=== PATIENT | male | born 1985 | race Caucasian/White ===

== ENCOUNTER 2020-01-09 09:37 | Outpatient (REF) | payer OTHER, SELFPAY ==
--- NOTE | 2020-01-09 | US_ITS ---
EXAMINATION: ABDOMINAL ULTRASOUND CLINICAL INFORMATION: Fatty liver COMPARISON: Previous CT of the abdomen and pelvis January 2018 and abdominal ultrasound July 2015 TECHNIQUE: Grayscale and color imaging of the abdomen FINDINGS: Liver echotexture is increased probably representing fatty infiltration. There is a hypoechoic area adjacent to the gallbladder, a characteristic location of focal fatty sparing. No other focal liver lesion is seen. There is no biliary duct dilatation. The gallbladder has been removed. The common bile duct is normal in caliber measuring 0.7 cm. The pancreas is unremarkable. The aorta and IVC are unremarkable. Kidneys are normal in contour and symmetric in size with the right kidney measuring 11.5 and the left 12.2 cm in length. No renal stone, mass or hydronephrosis is seen. The spleen is unremarkable. There is no ascites. IMPRESSION: Echogenic liver probably representing fatty infiltration. Otherwise unremarkable exam.
== END 2020-01-09 09:38 | disposition home or self-care (01) ==
LOC: HO.US 09:37
PROVIDERS: PCP Family Medicine; Visit Provider Family Medicine
DX: K76.0 Fatty (change of) liver, not elsewhere classified (principal)
CPT/HCPCS: 76700

== ENCOUNTER → 2020-03-19 14:54 | Outpatient (BNVA) | payer OTHER, SELFPAY | PROVIDERS: PCP Family Medicine; Referring Provider Family Medicine; Visit Provider Nurse Practitioner Gerontology | DX: E11.65 Type 2 diabetes mellitus with hyperglycemia (principal); I10 Essential (primary) hypertension; E78.5 Hyperlipidemia, unspecified; E78.1 Pure hyperglyceridemia; Z79.4 Long term (current) use of insulin | CPT/HCPCS: 82947; 99212 ==

== ENCOUNTER → 2020-05-30 10:51 | Outpatient (BNVA) | payer OTHER, SELFPAY | PROVIDERS: PCP Family Medicine; Visit Provider Nurse Practitioner Gerontology | DX: Z13.89 Encounter for screening for other disorder (principal) | CPT/HCPCS: Q3014 ==

== ENCOUNTER → 2021-09-17 13:10 | Outpatient (BNVA) | payer OTHER, SELFPAY | PROVIDERS: PCP Family Medicine; Visit Provider Surgery | DX: K43.2 Incisional hernia without obstruction or gangrene (principal) | CPT/HCPCS: 99212 ==

== ENCOUNTER 2021-10-01 08:05 | Outpatient (REF) | payer OTHER, SELFPAY ==
--- NOTE | ~2021-10-01 | CT_ITS ---
EXAMINATION: CT ABDOMEN AND PELVIS WITHOUT CONTRAST CLINICAL INFORMATION: Incisional hernia. COMPARISON: 01/07/2018. TECHNIQUE: Multidetector volumetric imaging was performed from the superior aspect of the liver through the pubic symphysis. Sagittal and coronal reformatted images were obtained on the technologist's workstation. This CT examination was performed using dose optimization techniques as appropriate, variously including the following: *Automated exposure control *Adjustment of mA and/or kV according to patient size (this includes techniques or standardized protocols for targeted exams where dose is matched to indication/reason for exam; i.e. extremities or head) *Use of iterative reconstruction technique DLP: 482 mGy-cm FINDINGS: LUNG BASES: The visualized lung bases are unremarkable. No pleural or pericardial effusion. LIVER, GALLBLADDER, AND BILIARY TREE: The liver is normal in size, shape, and attenuation. No biliary ductal dilatation is identified. There is a 5 mm low-density lesion seen within segment 7 of the liver likely representing a small cyst. Patient is status post cholecystectomy. PANCREAS: Unremarkable. SPLEEN: Unremarkable. ADRENAL GLANDS: Unremarkable. KIDNEYS AND URETERS: The kidneys are normal in size shape and attenuation. There is a small fat density again seen within the cortex lower pole of the left kidney consistent with angiomyolipoma. There is a 2 mm nonobstructing interpolar calcification within the left kidney. No hydronephrosis is identified. Previously noted left renal cysts are not identified due to lack of IV contrast. BLADDER: Unremarkable. GASTROINTESTINAL TRACT: No dilated loops of the large or small bowel are evident. No free air or free fluid is seen. There is some bowel wall prominence within the 1st and 2nd portions of the duodenum, which is likely related to their collapsed state with no adjacent fat stranding. No pericolonic fat stranding is identified. The appendix is visualized and appears unremarkable. ABDOMINAL WALL: No significant hernia is appreciated. LYMPH NODES: Normal. VASCULAR: Unremarkable. PELVIC VISCERA: Unremarkable. OSSEOUS STRUCTURES: Unremarkable. CT/CT abdomen pelvis wo con IMPRESSION: No significant abnormality. Fleischner guidelines were followed.
[2021-10-01] MEDS: Barium Sulfate Oral (Vanilla) 450 ML ORAL.SUSP 900 ML PO (11:25)
== END 2021-10-01 08:06 | disposition home or self-care (01) ==
LOC: HO.CT 08:05
PROVIDERS: PCP Family Medicine; Visit Provider Surgery
DX: K43.2 Incisional hernia without obstruction or gangrene (principal)
CPT/HCPCS: 74176

== ENCOUNTER → 2021-10-04 10:53 | Outpatient (BNVA) | payer OTHER, SELFPAY | PROVIDERS: PCP Family Medicine; Visit Provider Surgery | DX: R10.12 Left upper quadrant pain (principal); K59.00 Constipation, unspecified | CPT/HCPCS: 99212 ==

== ENCOUNTER 2021-12-23 13:32 | Emergency (ER) | payer OTHER, SELFPAY ==
--- NOTE | ~2021-12-23 | CT_ITS ---
EXAMINATION: CT WRIST WITHOUT CONTRAST, RIGHT CLINICAL INFORMATION: Pain and swelling. Abnormal x-ray COMPARISON: X-ray 12/23/2021 TECHNIQUE: Axial imaging. Sagittal and coronal reconstructions. This CT examination was performed using dose optimization techniques as appropriate, variously including the following: *Automated exposure control *Adjustment of mA and/or kV according to patient size (this includes techniques or standardized protocols for targeted exams where dose is matched to indication/reason for exam; i.e. extremities or head) *Use of iterative reconstruction technique DLP: 135 mGy-cm FINDINGS: There is motion artifact degrading images, limiting evaluation. There is a comminuted mildly displaced fracture of the base of the fifth metacarpal. There is mild medial displacement of the distal bone. There is intra-articular extension into the CMC joint. There is a displaced osseous fragment along the ulnar aspect of the base of the fifth metacarpal. There is an acute oblique mildly displaced fracture of the base of the fourth metacarpal. No definite intra-articular extension is identified. No additional acute fractures identified. There is widening of the scapholunate distance indicative of injury/laxity of the scapholunate ligament. Ulna negative variance. There are arthritic changes present. This includes mild radiocarpal, mild triscaphe joint arthritis. There is trapezium-pisiform articulation arthritis. CT/CT wrist RT wo IV con IMPRESSION: Motion artifact degrading images, limiting evaluation. 1. Comminuted mildly displaced intra-articular fracture of the base of the fifth metacarpal. 2. Mildly displaced fracture of the base of the fourth metacarpal. No definite intra-articular extension is seen. 3. Scapholunate distance widening indicative of injury/laxity of the ligament. 4. Arthritis as detailed above.
--- NOTE | ~2021-12-23 | XR_ITS ---
EXAMINATION: XR hand wrist RT CLINICAL INFORMATION: Reason for Exam pain COMPARISON: Right hand radiographs 11/24/2018 TECHNIQUE: 3 views right hand, navicular views right wrist FINDINGS: Comminuted mildly displaced fracture at the base of the fifth metacarpal. No definite intra-articular extension at the CMC joint. Additional newly displaced oblique fracture the base of the fourth metacarpal, also without the clear intra-articular extension. Overlying soft tissue swelling. No additional fracture or dislocation. Widening of the scapholunate interval compatible with injury/laxity of the scapholunate ligament. Minimal osteophyte formation at the triscaphe joint compatible with mild osteoarthritis. Minimal IP joint osteoarthritic changes most prominent at the thumb IP joint with small osteophytes. XR/XR hand wrist RT IMPRESSION: 1. Comminuted mildly displaced fracture of the base of the fifth metacarpal and minimally displaced fracture at the base of the fourth metacarpal. 2. Widened scapholunate interval compatible with injury/laxity of the scapholunate ligament.
[2021-12-23 13:35] VITALS: BP 146/91; PULSE 89; RESP 18; TEMP 36.6; O2SAT 98; BMI 23.8
--- NOTE | 2021-12-23 14:50 | ED.EXTPRO ---
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 He reports the pain is in his entire hand but worse at the base of his 4th and 5th fingers. He has limited hand grasp because of the pain. He denies any numbness or tingling. He also reports pain in his wrist on the ulnar aspect. It is worse with palpation and movement. He has not taken any medications for pain. He is right-hand dominant. He is in the process of working with his psychiatrist for anxiety medications. He reports a similar episode a couple of weeks ago when he punched an object as well but he did not sustain significant injury at that time. MD Complaint: extremity pain and extremity swelling Onset (ago): day(s) (1) Pain Consistency: constant Location: right Severity scale (1-10): 10 Quality: stabbing and aching Radiation: proximal Relieving factors: immobilization and elevation Exacerbating factors: range of motion and palpation Associated symptoms: denies other symptoms Related Data Home Medications Medication Instructions Recorded Confirmed atorvastatin 20 mg tablet 20 mg PO BEDTIME 03/19/20 10/04/21 blood sugar diagnostic #10 ea 03/19/20 10/04/21 cholecalciferol (vitamin D3) 50 50 mcg PO DAILY 03/19/20 10/04/21 mcg (2,000 unit) tablet duloxetine 30 mg capsule,delayed 30 mg PO QAM 03/19/20 10/04/21 release insulin degludec 100 unit/mL (3 18 unit subcut DAILY 03/19/20 10/04/21 mL) subcutaneous pen lancets 28 gauge #100 ea 03/19/20 10/04/21 loratadine 10 mg tablet 10 mg PO DAILY 03/19/20 10/04/21 omega-3 fatty acids 1,000 mg 1,000 mg PO BID 03/19/20 10/04/21 capsule oxcarbazepine 300 mg tablet 300 mg PO BID 03/19/20 10/04/21 alcohol swabs 0 pad topical 05/30/20 10/04/21 baclofen 10 mg tablet 10 mg PO TID 05/30/20 10/04/21 lisinopril 10 mg tablet 10 mg PO DAILY 05/30/20 10/04/21 Previous Rx's Medication Instructions Recorded dulaglutide 1.5 mg/0.5 mL 1.5 mg (0.5 mL) subcut QWEEK 84 02/26/21 subcutaneous pen injector days #6 mL (Trulicity) docusate sodium 100 mg capsule 100 mg PO DAILY constipation #30 10/04/21 (Colace) caps ibuprofen 600 mg tablet 600 mg PO Q8H PRN pain #14 tabs 12/23/21 oxycodone 5 mg tablet 5 mg PO Q8H PRN severe pain (scale 12/23/21 score 7-10) #9 tabs Allergies Allergy/AdvReac Type Severity Reaction Status Date / Time No Known Allergies Allergy Unverified 10/04/21 11:06 [No Known Allergies*] Review of Systems Review of Systems: Constitutional: No Fever, No Chills Cardiovascular: No Chest Pain, No SOB Gastrointestinal: No Nausea, No Vomiting Genitourinary: No Dysuria, No Urinary Frequency, No Hematuria Musculoskeletal: + joint pain, No Myalgias Skin: No Skin Lesions, No rash Neuro: + Weakness, No Numbness, No Dizziness, No Headache Psych: + Anxiety/Panic, No Depression Heme/Lymph: + Bruising, No Lymphadenopathy Endocrine: No Polyuria, No Polydipsia PMFSH Past Medical History Medical History Depression Diverticulitis Essential hypertension GERD (gastroesophageal reflux disease) Hyperlipidemia LDL goal <100 Hypertriglyceridemia IBS (irritable bowel syndrome) Inflammatory arthritis Schizophrenia Type 2 diabetes mellitus with hyperglycemia, with long-term current use of insulin Type 2 diabetes mellitus without complications Surgical History History of incisional hernia repair History of surgery on arm Hx of foot surgery Hx of hammer toe correction Hx of hand surgery Hx of hernia repair Hx of total cystectomy Family History Family History Paternal Grandfather Diabetes Social History Social History Household Members: Significant Other and Children Advance Directives: No Advance Directives Information Provided: No Physical Exam Vital Signs: Vital Signs: Last Vital Signs Temp 97.9 F 12/23/21 13:35 Pulse 89 12/23/21 13:35 Resp 18 12/23/21 13:35 BP 146/91 H 12/23/21 13:35 Pulse Ox 98 12/23/21 13:35 O2 Del Method 12/23/21 13:35 BMI result Body Mass Index 23.8 Appearance: Alert. Oriented X3. No acute distress. HEENT: normal inspection CVS: Normal heart rate and rhythm. Pulses normal. Respiratory: No respiratory distress. Skin: Skin warm and dry. Normal skin color. Normal skin turgor. No rashes. Extremities: dorsal aspect of the hand with moderate generalized swelling with tenderness of the entire hand as well as the wrist over the ulnar styloid, minimal snuff box tenderness. limited ROM of the 4th and 5th digits due to pain. cap refill <3 sec. difficulty making a tight hand grasp due to pain. Neuro: Oriented X 3. Nonfocal Course Course Course Narrative: 36-year-old male presents to the ER for evaluation of right hand pain and swelling after he punched a wall last night. Initial x-rays are showing fractures are showing comminuted, mildly displaced fracture at the base of the 5th metacarpal and minimally displaced fracture at the base of the 4th metacarpal. There is also a widened scapholunate interval compatible with injury/ laxity of the scapholunate ligament. Images were sent to Dr. Lyon for review. She is recommending further evaluation with CT scan to take a better look at the carpal bones. 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 Reevaluation(s) Reevaluation #1: CT scan read demonstrating x-ray findings including a comminuted mildly displaced intra-articular fracture of the base of the 5th metacarpal, mildly displaced fracture of the base of the 4th metacarpal, no definite intra-articular extension is seen. Scapholunate distance widening indicative of injury/ laxity of the ligament. No other carpal bone abnormalities were mentioned. Results were discussed with Dr. Lyon [place] [facility] [place] Recommending ulnar gutter, pain control and outpatient follow-up. Procedures Orthopedic Splinting/Casting Injury #1: Side: right Upper Extremity Injury Location: wrist and hand Upper Extremity Immobilizer: ulnar gutter Discharge Plan Discharge Clinical Impression: Closed fracture of fourth metacarpal bone, Closed fracture of 5th metacarpal Patient Disposition: Home, Self-Care Instructions: Hand Fracture (ED) Additional Instructions: Your CT scan today showed 1. Comminuted mildly displaced intra-articular fracture of the base of the fifth metacarpal. 2. Mildly displaced fracture of the base of the fourth metacarpal. No definite intra-articular extension is seen. 3. Scapholunate distance widening indicative of injury/laxity of the ligament. 4. Arthritis This will most likely require surgery Wear the provided splint until you are evaluated by Orthopedics - name and number below. Call tomorrow to arrange an appointment Elevate your hand whenever possible. Take the prescribed medications as directed. Do not drive after taking oxycodone, it can make you lethargic. If you develop new or worsening symptoms call 911 or come back to the ER for further evaluation. [place] tomograf?a computarizada de hoy mostr? 1. Fractura intraarticular levemente desplazada conminuta de la base del alexus metacarpiano. 2. Fractura levemente desplazada de la base del cuarto metacarpiano. No se observa extensi?n intraarticular definida. 3. Ampliaci?n de la distancia escafosemilunar indicativa de lesi?n/laxitud del ligamento. 4. Artritis Lo m?s probable es que requiera cirug?a Use la f?evelio provista hasta que [facility] lo eval?e; nombre y n?neal a continuaci?n. Llame ma?severo para concertar iliana marques Eleve [place] mano siempre que sea posible. [place] los medicamentos recetados seg?n las indicaciones. No conduzca despu?s de lesa oxicodona, puede causarle letargo. Si desarrolla s?ntomas nuevos o que empeoran, llame al 911 o regrese a la elbert de emergencias para iliana evaluaci?n adicional. Prescriptions: New oxycodone 5 mg tablet 5 mg PO Q8H PRN (Reason: severe pain (scale score 7-10)) Qty: 9 0RF Rx Instructions: Partial Fill upon patient request. ibuprofen 600 mg tablet 600 mg PO Q8H PRN (Reason: pain) Qty: 14 0RF No Action Trulicity 1.5 mg/0.5 mL pen injector 1.5 mg subcut QWEEK 84 Days Qty: 6 1RF alcohol swabs Pads, Medicated 0 pad topical lisinopril 10 mg tablet 10 mg PO DAILY baclofen 10 mg tablet 10 mg PO TID Tresiba FlexTouch U-100 100 unit/mL (3 mL) insulin pen 18 unit subcut DAILY oxcarbazepine 300 mg tablet 300 mg PO BID omega-3 fatty acids 1,000 mg capsule 1,000 mg PO BID duloxetine 30 mg capsule,delayed release(DR/EC) 30 mg PO QAM cholecalciferol (vitamin D3) 50 mcg (2,000 unit) tablet 50 mcg PO DAILY loratadine 10 mg tablet 10 mg PO DAILY atorvastatin 20 mg tablet 20 mg PO BEDTIME (DME) lancets 28 gauge misc See Rx Instructions topical BID Qty: 100 Rx Instructions: As directed (DME) FreeStyle Lite Strips Strip See Rx Instructions Not Applicable TID Qty: 10 Rx Instructions: As directed docusate sodium [Colace] 100 mg capsule 100 mg PO DAILY Qty: 30 2RF Referrals: Nicole Lyon MD [Physician] - Print Language: Serbian
[2021-12-23] MEDS: Ibuprofen 600 MG TABLET PO (15:19)
[2021-12-23] MEDS: oxyCODONE HCl Immed Release 5 MG TABLET PO (15:20)
== END 2021-12-23 19:06 | disposition home or self-care (01) ==
PROVIDERS: Emergency Provider Emergency Medicine; PCP Family Medicine
DX: S62.314A Displaced fracture of base of fourth metacarpal bone, right hand, initial encounter for closed fracture (principal); S62.316A Displaced fracture of base of fifth metacarpal bone, right hand, initial encounter for closed fracture; W22.09XA Striking against other stationary object, initial encounter; I10 Essential (primary) hypertension; E11.9 Type 2 diabetes mellitus without complications; E78.5 Hyperlipidemia, unspecified; Z79.02 Long term (current) use of antithrombotics/antiplatelets; Z79.4 Long term (current) use of insulin; Z79.899 Other long term (current) drug therapy; Y93.9 Activity, unspecified; Y92.9 Unspecified place or not applicable; Y99.9 Unspecified external cause status
CPT/HCPCS: 29125; 73110; 73130; 73200; 99283; 99284

== ENCOUNTER → 2021-12-26 09:51 | Outpatient (BNVA) | payer OTHER, SELFPAY | PROVIDERS: PCP Family Medicine; Visit Provider Physician Assistant | DX: S62.314A Displaced fracture of base of fourth metacarpal bone, right hand, initial encounter for closed fracture (principal); S62.316A Displaced fracture of base of fifth metacarpal bone, right hand, initial encounter for closed fracture | CPT/HCPCS: 99202 ==

== ENCOUNTER 2021-12-27 11:53 | Day surgery (SDC) | payer OTHER, SELFPAY ==
[2021-12-27] VITALS (10 sets, daily range): BP systolic 115–148; BP diastolic 72–96; PULSE 81–97; RESP 12–16; TEMP 36.2–36.3; O2SAT 93–96; BMI 23.8
--- NOTE | ~2021-12-27 | FL_ITS ---
EXAMINATION: XR FLUOROSCOPY WITH IMAGES CLINICAL INFORMATION: Fractures base fourth and fifth metacarpals. COMPARISON: CT right wrist and radiographs right hand and wrist 12/23/2021. TECHNIQUE: Fluoroscopy performed by Dr. Nicole Lyon. Fluoroscopy time: 29 seconds. Cumulative Dose: 0.9140 mGy. DAP: 0.0552 Gy-cm2. Images: 5. FINDINGS: Fracture base fifth metacarpal is reduced with 2 K wires. Hardware intact. Fracture fragments are in near-anatomic alignment. No dislocation. The fourth metacarpal fracture appears in near-anatomic alignment. FL/FL guidance in OR IMPRESSION: Fluoroscopy for orthopedic fracture reduction. Near-anatomic alignment.
--- NOTE | 2021-12-27 11:43 | P.CONAN_ITS ---
FORMERLY [facility] Active Problems Active Problems: All Active Problems (Updated 12/24/21 @ 00:01 by Jonathan Shore) RAMIREZ (nonalcoholic steatohepatitis) (Acute) Migraines (Acute) Colicky LUQ abdominal pain (Acute) Constipation (Acute) Incisional hernia (Acute) Type 2 diabetes mellitus with hyperglycemia, with long-term current use of insulin (Acute) Type 2 diabetes mellitus without complications (Acute) Essential hypertension (Acute) Hyperlipidemia LDL goal <100 (Acute) Hypertriglyceridemia (Acute) Past Medical History Medical History Depression Diverticulitis Essential hypertension GERD (gastroesophageal reflux disease) Hyperlipidemia LDL goal <100 Hypertriglyceridemia IBS (irritable bowel syndrome) Inflammatory arthritis Schizophrenia Type 2 diabetes mellitus with hyperglycemia, with long-term current use of insulin Type 2 diabetes mellitus without complications Family History Family History Paternal Grandfather Diabetes Surgical History Surgical History History of incisional hernia repair History of surgery on arm Hx of foot surgery Hx of hammer toe correction Hx of hand surgery Hx of hernia repair Hx of total cystectomy History of Problems with Anesthesia: No Social History Social History Household Members: Significant Other and Children Advance Directives: No Advance Directives Information Provided: Yes Current occupational status: disabled 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 Meds Allergies Allergy/AdvReac Type Severity Reaction Status Date / Time No Known Allergies Allergy Unverified 12/26/21 09:58 [No Known Allergies*] Home Medications Medication Instructions Recorded Confirmed Last Taken Type atorvastatin 20 mg tablet 20 mg PO BEDTIME 03/19/20 12/26/21 Unknown History blood sugar diagnostic #10 ea 03/19/20 12/26/21 Unknown History cholecalciferol (vitamin D3) 50 50 mcg PO DAILY 03/19/20 12/26/21 Unknown History mcg (2,000 unit) tablet duloxetine 30 mg capsule,delayed 30 mg PO QAM 03/19/20 12/26/21 Unknown History release insulin degludec 100 unit/mL (3 18 unit subcut DAILY 03/19/20 12/26/21 Unknown History mL) subcutaneous pen lancets 28 gauge #100 ea 03/19/20 12/26/21 Unknown History loratadine 10 mg tablet 10 mg PO DAILY 03/19/20 12/26/21 Unknown History omega-3 fatty acids 1,000 mg 1,000 mg PO BID 03/19/20 12/26/21 Unknown History capsule oxcarbazepine 300 mg tablet 300 mg PO BID 03/19/20 12/26/21 Unknown History alcohol swabs 0 pad topical 05/30/20 12/26/21 Unknown History baclofen 10 mg tablet 10 mg PO TID 05/30/20 12/26/21 Unknown History lisinopril 10 mg tablet 10 mg PO DAILY 05/30/20 12/26/21 Unknown History fluticasone propionate 50 intranasal 12/26/21 12/26/21 Unknown History mcg/actuation nasal spray,suspension Exam Exam Date and Time: December 27, 2021 1143 Airway Mallampati Class: III TM Dist: >3cm Neck ROM: Full Loose/Missing/Broken Teeth: No Heart: RRR Lungs: CTA Assessment and Plan Assessment Anesthesia Assessment: Anesthesia Plan Discussed and Chart Reviewed Final Anesthetic Review History of Problems with Anesthesia: No NPO: Yes ASA Class: II Final Preanesthetic Review: Meds/Allgs Chart Reviewed, Consent Obtained/Reviewed and Anes Risks/Benef Reviewed Patient Risk: Low Procedure Risk: Low Anesthetic Plan Anesthetic Plan: GA Disposition: Standard PACU
[2021-12-27] MEDS: Lactated Ringers 1,000 ML 50 ML IVCONT (13:27)
[2021-12-27 13:39] LABS: Glucose, Whole Blood 263 mg/dL (60-115)
--- NOTE | 2021-12-27 13:58 | MHC.SHP ---
Pre-Procedural Eval Section A Date of Service: 12/27/21 The patient is an INPATIENT: No Changes since office visit: No Cold of Flu in the past 2 weeks, No New Medical Problems, No Changes in Medication and No Patient answered all questions The History & Physical has been completed within 30 days and I have reviewed it.: Yes Section B Chief Complaint: Unspecified fracture of other metacarpal bone, ini Allergies: Allergies Allergy/AdvReac Type Severity Reaction Status Date / Time No Known Allergies Allergy Unverified 12/26/21 09:58 [No Known Allergies*] Plan I have reviewed the history and physical and performed a pertinent physical examination on my patient. No changes have occurred unless specified.
--- NOTE | 2021-12-27 13:59 | W.PM.OPN ---
Operative Note Operative Note Date of Service: 12/27/21 Narrative: Operative Note Narrative: Preop diagnosis: 1. right 4th Metacarpal base fracture 2. Right 5th metacarpal base fracture Postop diagnosis: Same Procedure: 1. Right 4th metacarpal base fracture closed reduction percutaneous pinning 2. right 5th metacarpal base fracture closed reduction percutaneous pinning 3. Ulnar nerve block Surgeon: Nicole Lyon MD Anesthesia: General Anesthesia Findings: Metacarpal fracture Implants: 0.062 K-wires times 2 Tourniquet time: None EBL: Minimal Specimen: None Drains: None Complications: None Disposition: Brought to the recovery room in stable condition Plan: Follow-up in 10-14 days for a wound check, postop radiographs and for placement in a short-arm cast Anticipate K-wire removal in 4-5 weeks based on interval bony healing Educate the patient that full fracture healing anticipated in approximately 8-12 weeks. Indications: The patient is [age] years old with right 4th and 5th metacarpal base fractures . The risks and benefits of operative treatment, including but not limited to risk of damage to blood vessels, nerves, tendons, infection, recurrence, delayed or nonunion of fracture, persistent pain or numbness, incomplete resolution of preoperative symptoms, or need for further surgery were discussed with the patient and they wished to proceed with surgery. Procedure: Once consent was obtained patient was brought back to the operating suite and placed in the operating table in a supine position. Perioperative antibiotics and general anesthesia was administered by the anesthesia team. A tourniquet was applied to the proximal aspect of the right upper extremity and the limb was prepped and draped in a standard surgical fashion. Tourniquet was not inflated during the case. The FluoroScan was used during the case to assist with our fracture reduction and placement of all implants. A closed reduction was performed on the patient's right 4th and 5th metacarpal base fractures. I 1st placed a 0.062 K-wire transversely through the shaft of the 5th metacarpal distal to our fracture, passing through the shaft of the 4th metacarpal just distal to the fracture and into the 3rd metacarpal, thereby holding Our 2 fractures out to length. I then passed a 2nd 0.062 K-wire obliquely through the 5th metacarpal shaft angled retrograde and obliquely across our fracture, across the 5th CMC joint and into the body of the hamate and the capitate. Fracture alignment was assessed for both angular and rotational malalignment. Once satisfied with our fracture reductions and implant placement, the K-wires were bent and cut short and pin caps applied. Final fluoroscopic images were then obtained. The wounds were copiously irrigated with normal saline. An ulnar nerve block was then performed by infiltrating about the ulnar nerve at the wrist with some 0.5% plain ropivacaine for postop pain control. A Sterile dressing and short volar splint was applied. The patient appears to have tolerated the procedure well and with no complications. All digits were well vascularized at the conclusion of the case.
[2021-12-27] MEDS: Acetaminophen 325 MG TABLET 975 MG PO (15:20)
[2021-12-27] MEDS: fentaNYL citrate/PF 100 MCG/2 ML VIAL 50 MCG IVPUSH (15:25)
[2021-12-27] MEDS: oxyCODONE HCl Immed Release 5 MG TABLET 10 MG PO (15:25)
[2021-12-27 15:36] LABS: Glucose, Whole Blood 233 mg/dL (60-115)
== END 2021-12-27 16:47 ==
LOC: HO.SSS 11:57
PROVIDERS: PCP Family Medicine; Visit Provider Orthopaedic Surgery
PROC: (CPT 26615; principal; 2021-12-27 14:10)
DX: S62.316A Displaced fracture of base of fifth metacarpal bone, right hand, initial encounter for closed fracture (principal); S62.314A Displaced fracture of base of fourth metacarpal bone, right hand, initial encounter for closed fracture; W22.09XA Striking against other stationary object, initial encounter; Y93.89 Activity, other specified; Y92.9 Unspecified place or not applicable; Y99.8 Other external cause status; F41.0 Panic disorder [episodic paroxysmal anxiety]; E11.9 Type 2 diabetes mellitus without complications; Z79.4 Long term (current) use of insulin; Z79.899 Other long term (current) drug therapy
CPT/HCPCS: 26608 ×2; 82947; J0690; J1170; J2250; J2405; J2795; J3010

== ENCOUNTER 2022-01-06 16:21 | Outpatient (REF) | payer OTHER, SELFPAY ==
--- NOTE | ~2022-01-06 | XR_ITS ---
EXAMINATION: XR HAND, RIGHT CLINICAL INFORMATION: Fracture COMPARISON: Previous x-ray most recent 01/03/2022 TECHNIQUE: PA, lateral, and oblique views of the right hand. FINDINGS: There are 2 pins or K wires across the fifth [facility] joint and proximal shaft of the second through fourth metacarpal bones. Orthopedic hardware appears unchanged. There is a comminuted minimally displaced fracture of the base of the fifth metacarpal bone. This appears unchanged. There is an oblique nondisplaced fracture of the proximal shaft of the fourth metacarpal bone. These appear unchanged. There is widening of the scapholunate joint and volar tilt of the lunate on the lateral view. Joint spaces are otherwise normal. There is soft tissue swelling adjacent to the base of the fourth and fifth metacarpal bones. XR/XR hand RT min 3V IMPRESSION: ORIF of fractures of the base of the fourth and fifth metacarpal bones.
== END 2022-01-06 16:22 | disposition home or self-care (01) ==
LOC: HO.HOSX 16:21
PROVIDERS: Visit Provider Orthopaedic Surgery
DX: S62.304A Unspecified fracture of fourth metacarpal bone, right hand, initial encounter for closed fracture (principal); X58.XXXA Exposure to other specified factors, initial encounter; Y93.9 Activity, unspecified; Y92.9 Unspecified place or not applicable; Y99.9 Unspecified external cause status
CPT/HCPCS: 73130; J1100

== ENCOUNTER 2022-01-21 17:03 | Outpatient (REF) | payer OTHER, SELFPAY ==
--- NOTE | ~2022-01-21 | XR_ITS ---
EXAMINATION: XR HAND, RIGHT CLINICAL INFORMATION: Pain. COMPARISON: Radiograph dated from 01/07/2022. TECHNIQUE: PA, lateral, and oblique views of the right hand. FINDINGS: Examination is not significantly changed when compared to 01/07/2022. Redemonstration of 2 pins or K wires across the fifth [facility] joint and proximal shaft of the second through fourth metacarpal bones. No evidence of hardware failure. A comminuted minimally displaced fracture of the base of the fifth metacarpal bone and an obliquely oriented minimally displaced fracture of the proximal shaft of the fourth metacarpal are not significantly changed. Stable widening of the scapholunate joint and volar tilt of the lunate. Similar degree of soft tissue swelling. XR/XR hand RT min 3V IMPRESSION: Stable examination when compared to 01/07/2022. No evidence of hardware failure. Fractures of the fourth and fifth metacarpal bones are not significantly changed.
== END 2022-01-21 17:04 | disposition home or self-care (01) ==
LOC: HO.HOSX 17:03
PROVIDERS: Visit Provider Orthopaedic Surgery
DX: M79.641 Pain in right hand (principal)
CPT/HCPCS: 73130

== ENCOUNTER 2022-01-27 20:50 | Outpatient (REF) | payer OTHER, SELFPAY ==
--- NOTE | ~2022-01-27 | XR_ITS ---
EXAMINATION: XR HAND, RIGHT CLINICAL INFORMATION: Right hand pain COMPARISON: January 07 and 01/22/2022 TECHNIQUE: PA, lateral, and oblique views of the right hand. FINDINGS: Routine R compressing 50-second metacarpal bone has been removed. There is laterally positioned pin is stable. There is interval healing of undisplaced fracture of fourth and fifth metacarpal bones. Soft tissues are normal. XR/XR hand RT min 3V IMPRESSION: Interval healing of fractures of fourth and fifth metacarpal bone with single hardware in place
== END 2022-01-27 20:51 | disposition home or self-care (01) ==
LOC: HO.HOSX 20:50
PROVIDERS: Visit Provider Orthopaedic Surgery
DX: M79.641 Pain in right hand (principal)
CPT/HCPCS: 73130

== ENCOUNTER 2022-03-15 23:56 | Emergency (ER) | payer OTHER, SELFPAY ==
--- NOTE | ~2022-03-15 | XR_ITS ---
EXAMINATION: XR HAND, RIGHT CLINICAL INFORMATION: Fracture of 4/fifth metacarpal. Swelling. COMPARISON: Right hand radiographs 01/28/2022. Right hand radiographs 01/07/2022. TECHNIQUE: PA, lateral, and oblique views of the right hand. FINDINGS: A comminuted fracture of the base of the fifth metatarsal is identified with mild radial angulation. Adjacent soft tissue prominence is noted. An oblique fracture of the proximal metadiaphysis of the fourth metatarsal is noted. The fracture lines are indistinct. No soft tissue emphysematous changes noted. The fractures are grossly unchanged in alignment compared with 01/28/2022. XR/XR hand RT min 3V IMPRESSION: *Subacute fractures of the fourth and fifth metacarpals as described above with partial interval healing. Prominent adjacent soft tissue inflammatory changes.
[2022-03-16 00:05] VITALS: BP 155/91; PULSE 102; RESP 16; TEMP 37.1; BMI 25.0
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
[2022-03-16] MEDS: Ibuprofen 600 MG TABLET PO (00:42)
--- NOTE | 2022-03-16 01:56 | MHC.EDTECH ---
Volar splint applied to patients right hand. Pt tolerated well. Dr Bill kinsey.
[2022-03-16] MEDS: oxyCODONE HCl Immed Release 5 MG TABLET PO (02:41)
== END 2022-03-16 02:46 | disposition home or self-care (01) ==
PROVIDERS: Emergency Provider Emergency Medicine; PCP Family Medicine
DX: S62.316A Displaced fracture of base of fifth metacarpal bone, right hand, initial encounter for closed fracture (principal); M79.641 Pain in right hand; X58.XXXA Exposure to other specified factors, initial encounter; Y93.9 Activity, unspecified; Y92.009 Unspecified place in unspecified non-institutional (private) residence as the place of occurrence of the external cause; Y99.9 Unspecified external cause status; Z79.899 Other long term (current) drug therapy
CPT/HCPCS: 29130; 73130; 99283; 99284

== ENCOUNTER 2022-03-20 10:17 | Outpatient (REF) | payer OTHER, SELFPAY ==
--- NOTE | ~2022-03-20 | XR_ITS ---
EXAMINATION: XR HAND, RIGHT CLINICAL INFORMATION: Fracture fourth and fifth metacarpals. Follow-up. COMPARISON: Radiographs right hand 03/16/2022, 01/22/2022 TECHNIQUE: Right hand is imaged in 3 views. FINDINGS: Comminuted fracture base and proximal shaft fifth metacarpal are stable in alignment. Base fracture is less distinct. The fourth metacarpal fracture proximal aspect is unchanged in alignment and fracture line not clearly visualized. No acute bony abnormality. XR/XR hand RT min 3V IMPRESSION: Continued healing fractures fourth and fifth metacarpals. No change in alignment.
== END 2022-03-20 10:18 | disposition home or self-care (01) ==
LOC: HO.HOSX 10:17
PROVIDERS: Visit Provider Physician Assistant
DX: S62.314A Displaced fracture of base of fourth metacarpal bone, right hand, initial encounter for closed fracture (principal); S62.316A Displaced fracture of base of fifth metacarpal bone, right hand, initial encounter for closed fracture; R20.0 Anesthesia of skin
CPT/HCPCS: 29085; 73130; 99212

== ENCOUNTER 2022-04-18 14:50 | Outpatient (REF) | payer OTHER, SELFPAY ==
--- NOTE | ~2022-04-18 | XR_ITS ---
EXAMINATION: XR HAND, RIGHT CLINICAL INFORMATION: Pain. COMPARISON: Prior radiographs, most recently 03/24/2022. TECHNIQUE: PA, lateral, and oblique views of the right hand. FINDINGS: There is stable alignment of comminuted fractures of the base and proximal shaft of the right fifth metacarpal bone. There is mild callus formation. A faint oblique fracture is redemonstrated of the proximal shaft of the fourth metacarpal bone. No dislocation is seen. There is mild osteoarthritic change of the interphalangeal joint of the thumb, and of the first, second, third and fifth metacarpophalangeal joints. There is some narrowing of the radiocarpal interval. No focal soft tissue swelling, gas or foreign body is seen. XR/XR hand RT min 3V IMPRESSION: There is stable alignment of proximal right fourth and fifth metacarpal fractures. There is good callus formation at the site of the proximal fifth metacarpal fracture.
== END 2022-04-18 14:51 | disposition home or self-care (01) ==
LOC: HO.HOSX 14:50
PROVIDERS: Visit Provider Physician Assistant
DX: S62.314D Displaced fracture of base of fourth metacarpal bone, right hand, subsequent encounter for fracture with routine healing (principal); S62.316D Displaced fracture of base of fifth metacarpal bone, right hand, subsequent encounter for fracture with routine healing; R20.0 Anesthesia of skin; X58.XXXD Exposure to other specified factors, subsequent encounter
CPT/HCPCS: 73130; 99212

== ENCOUNTER 2022-04-29 12:04 | Outpatient (REF) | payer OTHER, SELFPAY ==
--- NOTE | ~2022-04-29 | XR_ITS ---
EXAMINATION: XR HAND, RIGHT CLINICAL INFORMATION: Pain. COMPARISON: Radiographs dated 04/22/2022. TECHNIQUE: PA, lateral, and oblique views of the right hand. FINDINGS: There is continued stable alignment of comminuted fractures of the base of the proximal shaft of the right fifth metacarpal bone. There is stable, mild callus formation. A previously noted oblique fracture of the base of the fourth metacarpal bone is less well appreciated than previously noted. No dislocation is seen. There is persistent mild osteoarthritic change of the interphalangeal joint of the thumb and of the first, second, third and fifth metacarpophalangeal joints. Again, there is narrowing of the radiocarpal interval. There is an ulnar minus configuration. No focal soft tissue swelling, gas or foreign body seen. XR/XR hand RT min 3V IMPRESSION: There is stable alignment of a comminuted fracture of the proximal right fifth metacarpal. There is again, good, stable callus formation. The previously noted fourth metacarpal fracture line is now poorly appreciated.
== END 2022-04-29 12:05 | disposition home or self-care (01) ==
LOC: HO.HOSX 12:04
PROVIDERS: Visit Provider Physician Assistant
DX: S62.314A Displaced fracture of base of fourth metacarpal bone, right hand, initial encounter for closed fracture (principal); S62.316A Displaced fracture of base of fifth metacarpal bone, right hand, initial encounter for closed fracture
CPT/HCPCS: 73130; 99212

== ENCOUNTER 2022-05-08 13:07 | Outpatient (RCR) | payer OTHER, SELFPAY ==
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
== END 2022-06-18 15:36 | disposition home or self-care (01) ==
LOC: HO.OT 13:07
PROVIDERS: PCP Family Medicine; Visit Provider Orthopaedic Surgery
DX: S62.316D Displaced fracture of base of fifth metacarpal bone, right hand, subsequent encounter for fracture with routine healing (principal); S62.314D Displaced fracture of base of fourth metacarpal bone, right hand, subsequent encounter for fracture with routine healing
CPT/HCPCS: 97110; 97166

== ENCOUNTER 2022-05-20 08:04 | Outpatient (REF) | payer OTHER, SELFPAY ==
--- NOTE | ~2022-05-20 | XR_ITS ---
EXAMINATION: XR HAND, RIGHT CLINICAL INFORMATION: Pain. COMPARISON: Prior radiographs, most recently 04/29/2022. TECHNIQUE: PA, lateral, and oblique views of the right hand. FINDINGS: Bony mineralization is normal. A healing fracture in stable alignment is noted of the fifth proximal metacarpal shaft. There is adjacent periosteal callus formation. There is minimal osteoarthritic change of the interphalangeal joint of the thumb and of the fifth metacarpophalangeal joint. No dislocation is seen. No focal soft tissue swelling, gas or foreign body is seen. XR/XR hand RT min 3V IMPRESSION: There is stable alignment of a healing fracture of the right fifth proximal metacarpal shaft. There is adjacent periosteal callus formation.
== END 2022-05-20 08:05 | disposition home or self-care (01) ==
LOC: HO.HOSX 08:04
PROVIDERS: Visit Provider Physician Assistant
DX: S62.314A Displaced fracture of base of fourth metacarpal bone, right hand, initial encounter for closed fracture (principal); S62.316A Displaced fracture of base of fifth metacarpal bone, right hand, initial encounter for closed fracture
CPT/HCPCS: 73130; 99212

== ENCOUNTER 2022-05-27 09:40 | Outpatient (REF) | payer OTHER, SELFPAY | END 2022-05-27 09:41 | disposition home or self-care (01) | LOC: HO.HOSX 09:40 | PROVIDERS: Visit Provider Orthopaedic Surgery | DX: Z13.89 Encounter for screening for other disorder (principal) ==

== ENCOUNTER 2022-06-17 09:28 | Outpatient (REF) | payer OTHER, SELFPAY | END 2022-06-17 09:29 | disposition home or self-care (01) | LOC: HO.HOSX 09:28 | PROVIDERS: Visit Provider Physician Assistant | DX: Z13.89 Encounter for screening for other disorder (principal) ==

== ENCOUNTER 2022-09-15 12:40 | Emergency (ER) | payer OTHER, SELFPAY ==
--- NOTE | ~2022-09-15 | CT_ITS ---
EXAMINATION: CT ABDOMEN AND PELVIS WITH CONTRAST CLINICAL INFORMATION: Right flank pain. Nausea and vomiting. COMPARISON: 10/01/2021 TECHNIQUE: Multidetector volumetric images were obtained from the superior aspect of the liver through the pubic symphysis following administration 85 mL of Omnipaque 350 intravenous contrast. Sagittal and coronal reformatted images were obtained on the technologist's workstation. Oral contrast: No This CT examination was performed using dose optimization techniques as appropriate, variously including the following: *Automated exposure control *Adjustment of mA and/or kV according to patient size (this includes techniques or standardized protocols for targeted exams where dose is matched to indication/reason for exam; i.e. extremities or head) *Use of iterative reconstruction technique DLP: 466 mGy-cm FINDINGS: LUNG BASES: Gynecomastia. LIVER, GALLBLADDER, AND BILIARY TREE: The liver is mildly decreased in attenuation. No suspicious hepatic lesion or biliary ductal dilatation is present. The gallbladder is surgically absent. PANCREAS: Unremarkable. SPLEEN: Unremarkable. ADRENAL GLANDS: Unremarkable. KIDNEYS AND URETERS: The kidneys are symmetric in size and enhancement. No hydronephrosis or perinephric stranding. BLADDER: Unremarkable. GASTROINTESTINAL TRACT: Irregular wall thickening of the ascending colon no pericolonic inflammatory changes. No small bowel obstruction. Appendix is within normal. ABDOMINAL WALL: No significant hernia is appreciated. LYMPH NODES: No bulky abdominal or pelvic lymphadenopathy VASCULAR: Normal caliber abdominal aorta. PELVIC VISCERA: The prostate gland and seminal vesicles are unremarkable. OSSEOUS STRUCTURES: No destructive bone lesions. CT/CT abdomen pelvis w IV con IMPRESSION: Irregular wall thickening of the ascending colon without surrounding inflammatory changes. Correlation with direct visualization is advised.
[2022-09-15 12:51] VITALS: BP 113/70; PULSE 110; O2SAT 98
[2022-09-15 13:15] VITALS: BP 115/65; PULSE 101; RESP 19; TEMP 36.6; O2SAT 99; BMI 24.4
--- NOTE | 2022-09-15 13:15 | ED.ABDPAIN ---
HPI - Abdominal Pain General Chief Complaint: Abdominal Pain Stated Complaint: ABD PAIN,NAUSEA THIS AM PER EMS Time Seen by Provider: 09/15/22 14:54 Source: patient Mode of arrival: EMS Limitations: no limitations History of Present Illness HPI narrative: Patient comes to the emergency room complaining of severe abdominal pain. Today, patient started having epigastric pain, went to see his primary care physician, the pain was too severe and was sent via ambulance to the emergency room. At this time, patient states that the pain is subsiding but still present, mostly complaining of middle and lower back pain. Patient denies hematuria or dysuria, no history of kidney stones. Patient states that in 2008 he had a perforation secondary to diverticulitis. Patient states that pain feels very similar. Related Data Home Medications Medication Instructions Recorded Confirmed atorvastatin 20 mg tablet 20 mg PO BEDTIME 03/19/20 12/26/21 blood sugar diagnostic #10 ea 03/19/20 12/26/21 cholecalciferol (vitamin D3) 50 50 mcg PO DAILY 03/19/20 12/26/21 mcg (2,000 unit) tablet duloxetine 30 mg capsule,delayed 30 mg PO QAM 03/19/20 12/26/21 release insulin degludec 100 unit/mL (3 18 unit subcut DAILY 03/19/20 12/26/21 mL) subcutaneous pen lancets 28 gauge #100 ea 03/19/20 12/26/21 loratadine 10 mg tablet 10 mg PO DAILY 03/19/20 12/26/21 omega-3 fatty acids 1,000 mg 1,000 mg PO BID 03/19/20 12/26/21 capsule oxcarbazepine 300 mg tablet 300 mg PO BID 03/19/20 12/26/21 alcohol swabs 0 pad topical 05/30/20 12/26/21 baclofen 10 mg tablet 10 mg PO TID 05/30/20 12/26/21 lisinopril 10 mg tablet 10 mg PO DAILY 05/30/20 12/26/21 fluticasone propionate 50 intranasal 12/26/21 12/26/21 mcg/actuation nasal spray,suspension Previous Rx's Medication Instructions Recorded dulaglutide 1.5 mg/0.5 mL 1.5 mg (0.5 mL) subcut QWEEK 84 02/26/21 subcutaneous pen injector days #6 mL (Trulicity) docusate sodium 100 mg capsule 100 mg PO DAILY constipation #30 10/04/21 (Colace) caps ibuprofen 600 mg tablet 600 mg PO Q8H PRN pain #14 tabs 12/23/21 ibuprofen 600 mg tablet 600 mg PO TID PRN pain #20 tabs 03/16/22 oxycodone 5 mg tablet 5 mg PO BID PRN pain #7 tabs 03/16/22 levofloxacin 500 mg tablet 500 mg PO DAILY #9 tabs 09/15/22 metronidazole 500 mg tablet 500 mg PO BID #19 tabs 09/15/22 tramadol 50 mg tablet 50 mg PO BID PRN pain #7 tabs 09/15/22 Allergies Allergy/AdvReac Type Severity Reaction Status Date / Time No Known Allergies Allergy Verified 09/15/22 13:15 [No Known Allergies*] Review of Systems Review of Systems Constitutional : No Weight loss, No Fever, No Chills, No Night Sweats, No Fatigue, No Malaise ENT/Mouth : No Hearing loss, No Ear Pain, No Nasal Congestion, No Sinus Pain, No Hoarseness, No sore throat, No Rhinorrhea, No Swallowing Difficulty Eyes: No Eye Pain, No Swelling, No Redness, No Foreign Body, No Discharge, No Vision Changes Cardiovascular : No Chest Pain, No SOB, No Dyspnea on Exertion, No Orthopnea, No Edema, No Palpitations Respiratory : No Cough, No Sputum, No Wheezing, No Smoke Exposure, No Dyspnea Gastrointestinal : 1 episode of vomiting 1 episode of Diarrhea, No Constipation, complaining of epigastric pain radiating towards the back Genitourinary : no irregular bleeding, No Dysuria, No Urinary Frequency, No Hematuria, No Urinary Incontinence, No Urgency, No Flank Pain, No Urinary Flow Changes, No Hesitancy Musculoskeletal : No joint pain, No Myalgias, No Joint Swelling Skin : No Skin Lesions, No rash Neuro : No Weakness, No Numbness, No Paresthesias, No Loss of Consciousness, No Dizziness, No Headache Psych : No Anxiety/Panic, No Depression, No SI/HI/AH/VH, No Social Issues, Heme/Lymph: No Bruising, No Bleeding,No Lymphadenopathy Endocrine : No Polyuria, No Polydipsia, No Temperature Intolerance PMFSH Past Medical History Medical History Depression Diverticulitis Essential hypertension GERD (gastroesophageal reflux disease) Hyperlipidemia LDL goal <100 Hypertriglyceridemia IBS (irritable bowel syndrome) Inflammatory arthritis Schizophrenia Type 2 diabetes mellitus with hyperglycemia, with long-term current use of insulin Type 2 diabetes mellitus without complications Surgical History History of incisional hernia repair History of surgery on arm Hx of foot surgery Hx of hammer toe correction Hx of hand surgery Hx of hernia repair Hx of total cystectomy Family History Family History Paternal Grandfather Diabetes Social History Social History Household Members: Significant Other and Children Alcohol intake: current Alcohol intake frequency: a few times a month Patient Tobacco Use Status: Never used Tobacco Smoked in Last 30 Days: No Use of substances other than those prescribed or required for medical reasons: No Advance Directives: No Advance Directives Information Provided: No Current occupational status: disabled 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 Oriented X3. No acute distress. Eyes: Pupils equal, round and reactive to light. ENT: Pharynx normal. Neck: Normal inspection. Neck supple. No lymph nodes noted. No crepitus CVS: Normal heart rate and rhythm. Pulses normal. Normal S1 and S2 Respiratory: No respiratory distress. Breath sounds normal. No Wheezing. No rales Abdomen: Soft mild epigastric pain on palpation, no rebound, no guarding Skin: Skin warm and dry. Normal skin color. Normal skin turgor. Extremities: No lower extremity edema. No Lacerations. No Rash Neuro: Oriented X 3. No motor deficit. No sensory deficit. Moving all extremities. No slurred speech. CN 2 through 12 grossly intact Psych: calm, cooperative, normal affect Course Course Course Narrative: RME: 36-year-old male with past medical history of uncontrolled diabetes, HTN, HLD, constipation, RAMIREZ, perforated intestine, presenting to the ED complaining of epigastric/RUQ abdominal pain radiating to R flank since yesterday AM w/assoc N/V x today. Was seen at [facility] this AM. Admits presented similarly with perforated intestine Low suspicion for severe sepsis at this time Abdomen soft with epigastric and right CVA tenderness EKG, Labs, UA, CT AP ordered Full HPI, ROS and PE to be performed by primary ED provider. -1440--leukocytosis noted of 21.3 > lactic/blood cultures and empiric IV Zosyn ordered Medical Decision Making Medical Decision Making [facility] Narrative: -patient received normal saline, Zosyn was ordered from triage, patient also getting morphine and Zofran -my interpretation of CT scan of the abdomen: No perforation, no free air -CT scan shows irregular wall thickening of the ascending colon without surrounding inflammation changes. -patient feeling well, not nauseous, not vomiting -patient given antibiotics, he will continue antibiotics at home, instructed to return to emergency room if he has worsening pain or any new symptoms. At this time, patient states that he feels fairly well Lab Data [facility] Lab Attestation statement: I reviewed the patient's lab results. 09/15/22 13:40 09/15/22 13:40 Labs: Lab Results 09/15/22 09/15/22 09/15/22 Range/Units 13:40 13:40 15:06 WBC 21.3 H (4.8-10.8) X10*3/uL RBC 5.59 (4.60-5.80) X10*6/uL Hgb 15.9 (14.0-18.0) g/dl Hct 47.3 (42.0-52.0) % MCV 84.6 (80.0-98.0) fL MCH 28.4 (27.0-33.0) pg MCHC 33.6 (31.0-36.0) g/dl RDW 13.1 (11.0-16.0) % Plt Count 206 (160-400) X10*3/uL MPV 12.0 (9.4-12.4) fL Immature Gran % (Auto) 0.9 H (0.0-0.4) % Neut % (Auto) 84.6 H (45-73) % Lymph % (Auto) 3.3 L (20-40) % [place] % (Auto) 9.7 (2-11) % Eos % (Auto) 1.2 (0-4) % Baso % (Auto) 0.3 (0-2) % Lymph # (Auto) 0.7 L (1.2-4.9) X10*3/uL [place] # (Auto) 2.1 H (0.1-1.2) X10*3/uL Eos # (Auto) 0.3 (0.0-0.4) X10*3/uL Baso # (Auto) 0.1 (0.0-0.2) X10*3/uL Abs Immat Gran (auto) 0.19 H (0.00-0.03) X10*3/uL Absolute Neuts (auto) 18.1 H (2.0-8.3) x10*3/uL Absolute Nucleated RBC 0.000 (0.0-0.012) X10*3/uL Nucleated RBC % (auto) 0.0 (0.0-0.2) /100WBC Smear Tech's Comments VERIFIED Sodium 139 (135-145) mmol/L Potassium 5.2 H (3.3-5.1) mmol/L Chloride 111 H (96-108) mmol/L Carbon Dioxide 21 L (22-29) mmol/L Anion Gap 12 (12-20) BUN 25 H (9-16) mg/dL Creatinine 0.98 (0.5-1.4) mg/dL Estim Creat Clear Calc 95.5 Estimated GFR > 60 Random Glucose 307 H (60-115) mg/dL Lactic Acid 2.3 H* (0.5-2.0) mmol/L Calcium 9.0 (8.4-10.2) mg/dL Magnesium 1.7 (1.6-2.6) mg/dL Total Bilirubin 1.0 (0.0-1.0) mg/dL Direct Bilirubin 0.2 (0.0-0.5) mg/dL AST 14 (5-37) U/L ALT 18 (0-40) U/L Alkaline Phosphatase 112 (39-117) U/L Total Protein 7.7 (6.5-8.0) g/dL Albumin 4.3 (3.5-5.0) g/dL Lipase 26 (8-78) U/L Radiology Impression Discussion of test interpretation with radiology: I have reviewed the radiologist's reading. Radiologist Impression: FINDINGS: LUNG BASES: Gynecomastia. LIVER, GALLBLADDER, AND BILIARY TREE: The liver is mildly decreased in attenuation. No suspicious hepatic lesion or biliary ductal dilatation is present. The gallbladder is surgically absent.? PANCREAS: Unremarkable.? SPLEEN: Unremarkable.? ADRENAL GLANDS: Unremarkable.? KIDNEYS AND URETERS: The kidneys are symmetric in size and enhancement. No hydronephrosis or perinephric stranding. ? BLADDER: Unremarkable.? GASTROINTESTINAL TRACT: Irregular wall thickening of the ascending colon no pericolonic inflammatory changes. No small bowel obstruction. Appendix is within normal. ABDOMINAL WALL: No significant hernia is appreciated.? LYMPH NODES: No bulky abdominal or pelvic lymphadenopathy VASCULAR: Normal caliber abdominal aorta. PELVIC VISCERA: The prostate gland and seminal vesicles are unremarkable.? OSSEOUS STRUCTURES: No destructive bone lesions. CT/CT abdomen pelvis w IV con IMPRESSION: Irregular wall thickening of the ascending colon without surrounding inflammatory changes. Correlation with direct visualization is advised. Medications Administered Discontinued Medications Generic Name Dose Route Start Last Admin Trade Name Freq PRN Reason Stop Dose Admin Sodium Chloride 1,000 mls @ 999 mls/hr 09/15/22 13:30 09/15/22 15:33 Ns IV 09/15/22 14:30 999 mls/hr .Q1H1M KEILA Administration Piperacillin Sod/Tazobactam 50 mls @ 100 mls/hr 09/15/22 14:40 09/15/22 15:32 Sod 3.375 gm/ Sodium Chloride IV 09/15/22 15:09 100 mls/hr ONCE ONE Administration Iohexol 100 ml 09/15/22 15:21 09/15/22 15:21 Iohexol 350 Mg/Ml 100 Ml Infus..Btl IV 09/15/22 15:22 85 ml ONCE ONE Administration Morphine Sulfate 4 mg 09/15/22 15:02 09/15/22 15:32 Morphine Sulfate 4 Mg/Ml Cartridge IVPUSH 09/15/22 15:03 4 mg ONCE ONE Administration Protocol Ondansetron HCl 4 mg 09/15/22 15:07 09/15/22 15:32 Ondansetron Hcl 4 Mg/2 Ml Vial IVPUSH 09/15/22 15:08 4 mg ONCE ONE Administration Discharge Plan Discharge Clinical Impression: Abdominal pain Patient Disposition: Home, Self-Care Instructions: Abdominal Pain (ED) Additional Instructions: Please follow-up with your primary care physician tomorrow. If you have any worsening or new symptoms, please return to the emergency room or call 911 Prescriptions: New levofloxacin 500 mg tablet 500 mg PO DAILY Qty: 9 0RF metronidazole 500 mg tablet 500 mg PO BID Qty: 19 0RF tramadol 50 mg tablet 50 mg PO BID PRN (Reason: pain) Qty: 7 0RF No Action Trulicity 1.5 mg/0.5 mL pen injector 1.5 mg subcut QWEEK 84 Days Qty: 6 1RF ibuprofen 600 mg tablet 600 mg PO Q8H PRN (Reason: pain) Qty: 14 0RF ibuprofen 600 mg tablet 600 mg PO TID PRN (Reason: pain) Qty: 20 0RF oxycodone 5 mg tablet 5 mg PO BID PRN (Reason: pain) Qty: 7 0RF Rx Instructions: Partial Fill upon patient request. alcohol swabs Pads, Medicated 0 pad topical lisinopril 10 mg tablet 10 mg PO DAILY baclofen 10 mg tablet 10 mg PO TID Tresiba FlexTouch U-100 100 unit/mL (3 mL) insulin pen 18 unit subcut DAILY oxcarbazepine 300 mg tablet 300 mg PO BID omega-3 fatty acids 1,000 mg capsule 1,000 mg PO BID duloxetine 30 mg capsule,delayed release(DR/EC) 30 mg PO QAM cholecalciferol (vitamin D3) 50 mcg (2,000 unit) tablet 50 mcg PO DAILY loratadine 10 mg tablet 10 mg PO DAILY atorvastatin 20 mg tablet 20 mg PO BEDTIME (DME) lancets 28 gauge misc See Rx Instructions topical BID Qty: 100 Rx Instructions: As directed (DME) FreeStyle Lite Strips Strip See Rx Instructions Not Applicable TID Qty: 10 Rx Instructions: As directed docusate sodium [Colace] 100 mg capsule 100 mg PO DAILY Qty: 30 2RF fluticasone propionate 50 mcg/actuation spray,suspension intranasal
--- NOTE | 2022-09-15 13:17 | ECG_ITS ---
Test Reason : chest pain Blood Pressure : / mmHG Vent. Rate : 100 BPM Atrial Rate : 100 BPM P-R Int : 124 ms QRS Dur : 070 ms QT Int : 340 ms P-R-T Axes : 042 013 060 degrees QTc Int : 438 ms Normal sinus rhythm Normal ECG When compared with ECG of 14-APR-2018 12:46, No significant change was found Referred By: Yue Alba Electronically Signed By:CHIQUITA COBURN MD
--- NOTE | 2022-09-15 13:41 | MHC.EDTECH ---
EKG completed and signed by . Labs drawn and sent
[2022-09-15 13:45] LABS: Basophils Absolute Auto 0.1 X10*3/uL (0.0-0.2); Basophils Percent Auto 0.3 % (0-2); Eosinophils Absolute Auto 0.3 X10*3/uL (0.0-0.4); Eosinophils Percent Auto 1.2 % (0-4); Hematocrit 47.3 % (42.0-52.0); Hemoglobin 15.9 g/dl (14.0-18.0); Imm Gran Abs Auto 0.19 X10*3/uL (0.00-0.03); Imm Gran Pct Auto 0.9 % (0.0-0.4); Lymphocytes Absolute Auto 0.7 X10*3/uL (1.2-4.9); Lymphocytes Percent Auto 3.3 % (20-40); MANUAL DIFF FLAG SCAN; Mean Corpuscular HGB Conc 33.6 g/dl (31.0-36.0); Mean Corpuscular Hemoglobin 28.4 pg (27.0-33.0); Mean Corpuscular Volume 84.6 fL (80.0-98.0); Monocytes Absolute Auto 2.1 X10*3/uL (0.1-1.2); Monocytes Percent Auto 9.7 % (2-11); Neutrophils Absolute Auto 18.1 x10*3/uL (2.0-8.3); Neutrophils Percent Auto 84.6 % (45-73); Platelet Count 206 X10*3/uL (160-400); Red Blood Count 5.59 X10*6/uL (4.60-5.80); Red Cell Distribution Width 13.1 % (11.0-16.0); SCAN SMEAR FLAG 1; White Blood Count 21.3 X10*3/uL (4.8-10.8)
[2022-09-15 14:07] LABS: SLIDE REVIEW VERIFIED
[2022-09-15 14:08] LABS: Alanine Aminotransferase 18 U/L (0-40); Albumin Level 4.3 g/dL (3.5-5.0); Alkaline Phosphatase 112 U/L (39-117); Anion Gap 12 (12-20); Aspartate Amino Transferase 14 U/L (5-37); Bilirubin Direct 0.2 mg/dL (0.0-0.5); Blood Urea Nitrogen 25 mg/dL (9-16); Carbon Dioxide 21 mmol/L (22-29); Chloride 111 mmol/L (96-108); Creatinine Clr Calc Pharmacy 95.5; Estimated Glomerular Filt Rate > 60; Glucose Random 307 mg/dL (60-115); Lipase 26 U/L (8-78); Magnesium 1.7 mg/dL (1.6-2.6); Potassium 5.2 mmol/L (3.3-5.1); Sodium 139 mmol/L (135-145); Total Protein 7.7 g/dL (6.5-8.0)
--- NOTE | 2022-09-15 15:10 | PC.NURSE ---
pt a&ox4, vss, reporting 8/10 bilateral flank/back pain with slight central abd tenderness. 20G IV placed left AC, labs drawn, first set of cultures obtained. pt to CT.
[2022-09-15] MEDS: iohexoL 350 MG/ML 100 ML INFUS..BTL IV (15:21)
[2022-09-15 15:28] VITALS: BP 121/68; PULSE 107; RESP 16; TEMP 37.8; O2SAT 97
[2022-09-15 15:32] LABS: Lactic Acid 2.3 mmol/L (0.5-2.0)
[2022-09-15] MEDS: Piperacillin Sodium/Tazobactam 3.375 GM in 0.9 % Sodium Chloride 50 ML IV (15:32)
[2022-09-15] MEDS: ondansetron HCL 4 MG/2 ML VIAL IVPUSH (15:32)
[2022-09-15] MEDS: Morphine Sulfate 4 MG/ML CARTRIDGE IVPUSH (15:32)
[2022-09-15] MEDS: 0.9 % Sodium Chloride 1,000 ML 999 ML IV (15:33)
--- NOTE | 2022-09-15 15:42 | MHC.EDTECH ---
this pct assumed care of pt at 1500 ,vitals sign taken,pt 2nd sets of blood culture drawn and sent to lab .
[2022-09-15 16:35] VITALS: BP 96/57; PULSE 99
[2022-09-15 16:47] VITALS: BP 110/65; PULSE 101
[2022-09-15 16:48] LABS: Appearance Urine Clear; Color Urine Yellow; Glucose Urine UA >=1000 mg/dL (Negative); Leukocyte Esterase Urine Negative (Negative); Nitrite Urine Negative (Negative); Specific Gravity - Urine >= 1.030 (1.005-1.025); UMIC TRIGGER UACC YES; Urine Blood Negative (Negative); Urine Ketones Negative (Negative); Urine Protein Negative (Neg-Trace)
[2022-09-15 16:53] LABS: Bacteria Urine None Seen (None Seen); RBC Urine 0-2 /HPF (0-2); Squamous Epithelial Cell Urine 0-2 /HPF (0-2); WBC Urine 0-5 /HPF (0-5)
[2022-09-15 16:54] VITALS: BP 105/56; PULSE 100; RESP 16; TEMP 37.1; O2SAT 97
--- NOTE | 2022-09-15 16:54 | MHC.EDTECH ---
PATIENT DID PO CHALLENGE ,PT TOLERATED WELL .
--- NOTE | 2022-09-15 17:00 | PC.NURSE ---
per provider, pt does not need second lactic.
[2022-09-15 17:13] LABS: Reflex Lactate? Lactic Acid Added
[2022-09-15] MEDS: metroNIDAZOLE 500 MG TABLET PO (17:21)
== END 2022-09-15 17:24 | disposition home or self-care (01) ==
PROVIDERS: Physician Assistant; Emergency Provider Emergency Medicine
DX: R10.13 Epigastric pain (principal); R10.11 Right upper quadrant pain; I10 Essential (primary) hypertension; E78.5 Hyperlipidemia, unspecified; K75.81 Nonalcoholic steatohepatitis (NASH)
CPT/HCPCS: 36415; 74177; 80048; 80076; 81001; 83605; 83690; 83735; 85025; 87040; 93005; 96365; 96375; 99285; J2270; J2405; J2543; Q9967

== ENCOUNTER 2023-01-30 17:57 | Outpatient (REF) | payer OTHER, SELFPAY ==
[2023-01-30 18:50] LABS: Influenza A PCR NEGATIVE (Negative); Influenza B PCR NEGATIVE (Negative); Resp Syncy Virus RNA Qual PCR NEGATIVE (Negative); SARS COV2 PCR INHOUSE NEGATIVE (Negative)
== END 2023-01-30 17:58 | disposition home or self-care (01) ==
LOC: HO.HHCLNP 17:57
PROVIDERS: Visit Provider Emergency Medicine
DX: J06.9 Acute upper respiratory infection, unspecified (principal); Z11.52 Encounter for screening for COVID-19
CPT/HCPCS: 0241U

== ENCOUNTER 2023-03-12 08:44 | Emergency (ER) | payer OTHER, SELFPAY ==
[2023-03-12 09:08] VITALS: BP 144/87; PULSE 95; RESP 16; TEMP 36.7; O2SAT 97; BMI 23.5
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
[2023-03-12 12:14] LABS: IDNOW Serial# 08D9AD1C; IDNOW Serial# BCCEAD1C; Influenza A Negative (Negative); Influenza B2 Negative (Negative)
[2023-03-12 12:15] LABS: COVID-19 Test Negative (Negative)
== END 2023-03-12 13:02 | disposition home or self-care (01) ==
PROVIDERS: Physician Assistant; Emergency Provider Emergency Medicine Emergency Medical Services; PCP Family Medicine
DX: T14.8XXA Other injury of unspecified body region, initial encounter (principal); W57.XXXA Bitten or stung by nonvenomous insect and other nonvenomous arthropods, initial encounter; R09.81 Nasal congestion; Z11.52 Encounter for screening for COVID-19; E11.9 Type 2 diabetes mellitus without complications; I10 Essential (primary) hypertension; E78.5 Hyperlipidemia, unspecified; Y93.9 Activity, unspecified; Y92.032 Bedroom in apartment as the place of occurrence of the external cause; Y99.9 Unspecified external cause status
CPT/HCPCS: 87502; 87635; 99282; 99283

== ENCOUNTER 2023-09-09 20:49 | Emergency (ER) | payer OTHER, SELFPAY ==
[2023-09-09 21:07] VITALS: BP 149/95; PULSE 93; RESP 20; TEMP 36.8; O2SAT 99; BMI 22.2
[2023-09-09 22:13] VITALS: BP 153/97; PULSE 84; RESP 16; TEMP 36.8; O2SAT 98
[2023-09-10 00:31] VITALS: BP 143/97; PULSE 79; RESP 16; TEMP 36.4; O2SAT 97
--- NOTE | 2023-09-10 01:00 | ED.GENADULT ---
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 Patient reports low back pain for the last 4 days. Denies any traumatic injury. Specifically denies any falls, twisting injuries or heavy lifting. His pain does not radiate. Denies any numbness, tingling. Denies any bladder or bowel incontinence pain Denies any radiation of his pain including abdominal pain Denies any history of back problems. Denies any fevers, chills His pain is worse with movement Related Data Home Medications ?Medication ?Instructions ?Recorded ?Confirmed atorvastatin 20 mg tablet 20 mg PO BEDTIME 03/19/20 12/26/21 blood sugar diagnostic #10 ea 03/19/20 12/26/21 cholecalciferol (vitamin D3) 50 50 mcg PO DAILY 03/19/20 12/26/21 mcg (2,000 unit) tablet duloxetine 30 mg capsule,delayed 30 mg PO QAM 03/19/20 12/26/21 release insulin degludec 100 unit/mL (3 18 unit subcut DAILY 03/19/20 12/26/21 mL) subcutaneous pen lancets 28 gauge #100 ea 03/19/20 12/26/21 loratadine 10 mg tablet 10 mg PO DAILY 03/19/20 12/26/21 omega-3 fatty acids 1,000 mg 1,000 mg PO BID 03/19/20 12/26/21 capsule oxcarbazepine 300 mg tablet 300 mg PO BID 03/19/20 12/26/21 alcohol swabs 0 pad topical 05/30/20 12/26/21 baclofen 10 mg tablet 10 mg PO TID 05/30/20 12/26/21 lisinopril 10 mg tablet 10 mg PO DAILY 05/30/20 12/26/21 fluticasone propionate 50 intranasal 12/26/21 12/26/21 mcg/actuation nasal spray,suspension Previous Rx's ?Medication ?Instructions ?Recorded dulaglutide 1.5 mg/0.5 mL 1.5 mg (0.5 mL) subcut QWEEK 84 02/26/21 subcutaneous pen injector days #6 mL (Trulicity) docusate sodium 100 mg capsule 100 mg PO DAILY constipation #30 10/04/21 (Colace) caps ibuprofen 600 mg tablet 600 mg PO Q8H PRN pain #14 tabs 12/23/21 ibuprofen 600 mg tablet 600 mg PO TID PRN pain #20 tabs 03/16/22 oxycodone 5 mg tablet 5 mg PO BID PRN pain #7 tabs 03/16/22 levofloxacin 500 mg tablet 500 mg PO DAILY #9 tabs 09/15/22 metronidazole 500 mg tablet 500 mg PO BID #19 tabs 09/15/22 tramadol 50 mg tablet 50 mg PO BID PRN pain #7 tabs 09/15/22 cetirizine 10 mg capsule (Zyrtec) 10 mg PO DAILY PRN allergy 03/12/23 symptoms #14 caps diphenhydramine HCl 25 mg capsule 25 mg PO TID PRN itching #14 caps 03/12/23 (Benadryl) hydrocortisone 1 % lotion 1 appl topical BID PRN itching 03/12/23 (Anti-Itch (hydrocortisone)) #120 mL cyclobenzaprine 10 mg tablet 10 mg PO TID PRN muscle spasm #12 09/10/23 tabs dexamethasone 4 mg tablet 4 mg PO BID #6 tabs 09/10/23 naproxen 500 mg tablet 500 mg PO BID PRN pain #14 tabs 09/10/23 Allergies Allergy/AdvReac Type Severity Reaction Status Date / Time No Known Allergies Allergy Verified 09/09/23 21:10 [No Known Allergies*] Review of Systems Constitutional: Constitutional: Denies body ache(s), Denies chills and Denies fever(s) Eyes: Eyes: Denies blurry vision Cardiovascular: Cardiovascular: Denies chest pain and Denies dyspnea Respiratory: Respiratory: Denies cough and Denies dyspnea Gastrointestinal: Gastrointestinal: Denies abdominal pain Musculoskeletal: Musculoskeletal: Reports back pain, Denies arthralgias, Denies joint swelling, Denies limited range of motion, Denies muscle weakness, Denies radiating pain into limb and Reports stiffness PMFSH Past Medical History Medical History Type 2 diabetes mellitus with hyperglycemia, with long-term current use of insulin IBS (irritable bowel syndrome) Hypertriglyceridemia Schizophrenia Inflammatory arthritis Diverticulitis GERD (gastroesophageal reflux disease) Depression Essential hypertension Hyperlipidemia LDL goal <100 Type 2 diabetes mellitus without complications Surgical History Hx of hammer toe correction History of incisional hernia repair Hx of total cystectomy Hx of hand surgery History of surgery on arm Hx of foot surgery Hx of hernia repair Family History Family History Paternal Grandfather Diabetes Social History Social History Household Members: Significant Other and Children Alcohol intake: current Alcohol intake frequency: a few times a month Patient Tobacco Use Status: Never used Tobacco Advance Directives: No Advance Directives Information Provided: No Do you have a plan to hurt others: No Plan Current occupational status: disabled 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 Physical Exam ED Vital Signs: Vital Signs - 24 hr 09/09/23 21:07 09/09/23 22:13 09/10/23 00:31 Temperature 98.2 F 98.2 F 97.6 F Pulse Rate 93 84 79 Respiratory Rate 20 16 16 Blood Pressure 149/95 H 153/97 H 143/97 H Pulse Oximetry 99 98 97 Oxygen Delivery Method Room Air Room Air Room Air 09/10/23 01:14 Temperature 97.6 F Pulse Rate 79 Respiratory Rate 16 Blood Pressure 143/97 H Pulse Oximetry 97 Oxygen Delivery Method Room Air BMI result Body Mass Index 22.2 Const General: healthy appearing, comfortable, no acute distress, alert and awake Nutritional Appearance: well nourished Orientation/consciousness: patient oriented x3 HENMT Head: Yes normocephalic and Yes atraumatic Eyes Eyelids: Yes eyelids normal Conjunctivae: conjunctivae normal Sclerae: sclerae normal Corneas: corneas normal Pupils: Equal, round and reactive pupils present EOM: EOMs intact bilaterally Neck Neck: Yes full ROM Resp Effort & Inspection: normal respiratory effort, able to speak in complete sentences and not labored GI Inspection: No distended Palpation (GI): Soft to palpation, not firm, nontender, no guarding and not rigid Back/Spine/Pelvis Other: Tenderness in the left lumbar paraspinous region. No vertebral tenderness. No step-offs or deformities. Negative straight leg raise on left Skin General skin exam: elasticity normal Neuro General: patient oriented x3 Cranial nerves: Yes Equal, round and reactive pupils present and Yes Bilaterally intact EOM present Cognition (Neuro): normal cognition Extrem Other: Moving all extremities well without any obvious deformities Medical Decision Making Medical Decision Making MDM Narrative: 37-year-old male presents for evaluation of lower back pain over the last 4 days. He denies any fevers or chills, less likely be infectious cause. He is ambulatory with good strength. No radiation of his pain. He has no GI or symptoms. He has no warning signs for cauda equina syndrome. He has no vertebral tenderness, no traumatic injury. I did discuss possible x-ray imaging but the patient declines this time. Will treat with symptomatic care for lumbar radiculopathy Differential Diagnosis Differential Diagnoses: The differential diagnosis associated with the presentation includes Acute low back pain Lumbar radiculopathy Disc herniation Sciatica Obstructive uropathy Pyelonephritis Tests considered The following testing was considered but not selected: X-ray lumbar spine, patient deferred Discharge Plan Discharge Clinical Impression: Acute bilateral low back pain Patient Disposition: Home, Self-Care Instructions: Acute Low Back Pain (ED) Additional Instructions: Your symptoms are most likely related to muscle spasms and or a pinched nerve Take dexamethasone twice daily for the next 3 days You may use ibuprofen/Tylenol for pain Use cyclobenzaprine as needed for muscle spasms This may make you sleepy, did not drink alcohol or drive after taking it You may also use warm compresses Follow-up with your primary doctor Prescriptions: New dexamethasone 4 mg tablet 4 mg PO BID Qty: 6 0RF cyclobenzaprine 10 mg tablet 10 mg PO TID PRN (Reason: muscle spasm) Qty: 12 0RF naproxen 500 mg tablet 500 mg PO BID PRN (Reason: pain) Qty: 14 0RF No Action Trulicity 1.5 mg/0.5 mL pen injector 1.5 mg subcut QWEEK 84 Days Qty: 6 1RF ibuprofen 600 mg tablet 600 mg PO Q8H PRN (Reason: pain) Qty: 14 0RF ibuprofen 600 mg tablet 600 mg PO TID PRN (Reason: pain) Qty: 20 0RF oxycodone 5 mg tablet 5 mg PO BID PRN (Reason: pain) Qty: 7 0RF Rx Instructions: Partial Fill upon patient request. levofloxacin 500 mg tablet 500 mg PO DAILY Qty: 9 0RF metronidazole 500 mg tablet 500 mg PO BID Qty: 19 0RF tramadol 50 mg tablet 50 mg PO BID PRN (Reason: pain) Qty: 7 0RF hydrocortisone [Anti-Itch (HC)] 1 % lotion 1 appl topical BID PRN (Reason: itching) Qty: 120 0RF diphenhydramine HCl [Benadryl] 25 mg capsule 25 mg PO TID PRN (Reason: itching) Qty: 14 0RF Zyrtec 10 mg capsule 10 mg PO DAILY PRN (Reason: allergy symptoms) Qty: 14 0RF alcohol swabs Pads, Medicated 0 pad topical lisinopril 10 mg tablet 10 mg PO DAILY baclofen 10 mg tablet 10 mg PO TID Tresiba FlexTouch U-100 100 unit/mL (3 mL) insulin pen 18 unit subcut DAILY oxcarbazepine 300 mg tablet 300 mg PO BID omega-3 fatty acids 1,000 mg capsule 1,000 mg PO BID duloxetine 30 mg capsule,delayed release(DR/EC) 30 mg PO QAM cholecalciferol (vitamin D3) 50 mcg (2,000 unit) tablet 50 mcg PO DAILY loratadine 10 mg tablet 10 mg PO DAILY atorvastatin 20 mg tablet 20 mg PO BEDTIME (DME) lancets 28 gauge misc See Rx Instructions topical BID Qty: 100 Rx Instructions: As directed (DME) FreeStyle Lite Strips Strip See Rx Instructions Not Applicable TID Qty: 10 Rx Instructions: As directed docusate sodium [Colace] 100 mg capsule 100 mg PO DAILY Qty: 30 2RF fluticasone propionate 50 mcg/actuation spray,suspension intranasal Stand Alone Forms: Work/School Release Interventions: ED Discharge Assessment Last Done: 09/10/23 01:14 Discharge Date/Time: 09/10/23 01:15 Print Language: Vincentian
[2023-09-10 01:14] VITALS: BP 143/97; PULSE 79; RESP 16; TEMP 36.4; O2SAT 97
== END 2023-09-10 01:15 | disposition home or self-care (01) ==
PROVIDERS: Emergency Provider Emergency Medicine Emergency Medical Services; PCP Family Medicine
DX: M54.50 Low back pain, unspecified (principal); E11.9 Type 2 diabetes mellitus without complications; I10 Essential (primary) hypertension; E78.5 Hyperlipidemia, unspecified; Z79.4 Long term (current) use of insulin; Z79.85 Long-term (current) use of injectable non-insulin antidiabetic drugs; Z79.899 Other long term (current) drug therapy; Z79.02 Long term (current) use of antithrombotics/antiplatelets
CPT/HCPCS: 99283

== ENCOUNTER 2023-11-26 14:32 | Emergency (ER) | payer OTHER, SELFPAY ==
--- NOTE | ~2023-11-26 | CT_ITS ---
EXAMINATION: CT ABDOMEN AND PELVIS WITH CONTRAST CLINICAL INFORMATION: Left-sided abdominal pain COMPARISON: 09/15/2022 TECHNIQUE: Multidetector volumetric images were obtained from the superior aspect of the liver through the pubic symphysis following administration 85 mL of Omnipaque 350 intravenous contrast. Sagittal and coronal reformatted images were obtained on the technologist's workstation. Oral contrast: No This CT examination was performed using dose optimization techniques as appropriate, variously including the following: *Automated exposure control *Adjustment of mA and/or kV according to patient size (this includes techniques or standardized protocols for targeted exams where dose is matched to indication/reason for exam; i.e. extremities or head) *Use of iterative reconstruction technique DLP: 441 mGy-cm FINDINGS: LUNG BASES: The visualized lung bases are unremarkable. LIVER, GALLBLADDER, AND BILIARY TREE: The liver is normal in size, shape, and attenuation. No focal hepatic lesion or biliary ductal dilatation is present. Status post cholecystectomy PANCREAS: Unremarkable. SPLEEN: Unremarkable. ADRENAL GLANDS: Unremarkable. KIDNEYS AND URETERS: The kidneys are normal in size, shape, and attenuation. No hydronephrosis, hydroureter, or calculi seen. No perinephric stranding. BLADDER: Unremarkable. GASTROINTESTINAL TRACT: The small and large bowel are unremarkable. The appendix is unremarkable. ABDOMINAL WALL: No significant hernia is appreciated. LYMPH NODES: Normal. VASCULAR: Unremarkable. PELVIC VISCERA: Unremarkable. OSSEOUS STRUCTURES: Unremarkable. CT/CT abdomen pelvis w IV con IMPRESSION: No significant abnormality. Electronically signed by: Goldy Dugan MD 11/26/2023 10:22 PM EDT
[2023-11-26 14:59] VITALS: BP 142/90; PULSE 88; RESP 18; TEMP 36.6; O2SAT 98; BMI 22.1
--- NOTE | 2023-11-26 14:59 | ED_ITS ---
HPI - Abdominal Pain General Chief Complaint: Abdominal Pain Stated Complaint: abd pain Time Seen by Provider: 11/26/23 18:45 Source: patient and cheese wrapper Mode of arrival: ambulatory Limitations: language barrier History of Present Illness ED Provider: mushtaq WADDELL narrative: Patient is a 37-year-old Greek-speaking male with history of T2DM, HTN, RAMIREZ, diverticulitis with bowel perforation in 2008 presenting to the emergency department with complaint of abdominal pain and diarrhea. States his symptoms began on Thursday with nausea and vomiting, then progress to diarrhea and abdominal pain. States the vomiting has since resolved but he is still having diarrhea with any p.o. intake. Has been able to tolerate fluids. Denies fevers. Was seen at [facility] and diagnosed with viral illness, not prescribed any medications. States pain is ongoing. More than 6 episodes of diarrhea per day. Denies any hematochezia or melena. He expresses concern about his abdominal pain given history of bowel perforation in the past. In- person mobile application architect utilized during assessment. MD elicited complaint: abdominal pain Pertinent past history: diverticulitis Onset (ago): day(s) Pain Consistency: colicky Location: LUQ and LLQ Severity: moderate Exacerbating factors: eating Associated symptoms: nausea, vomiting and diarrhea Related Data Home Medications ?Medication ?Instructions ?Recorded ?Confirmed atorvastatin 20 mg tablet 20 mg PO BEDTIME 03/19/20 12/26/21 blood sugar diagnostic #10 ea 03/19/20 12/26/21 cholecalciferol (vitamin D3) 50 50 mcg PO DAILY 03/19/20 12/26/21 mcg (2,000 unit) tablet duloxetine 30 mg capsule,delayed 30 mg PO QAM 03/19/20 12/26/21 release insulin degludec 100 unit/mL (3 18 unit subcut DAILY 03/19/20 12/26/21 mL) subcutaneous pen lancets 28 gauge #100 ea 03/19/20 12/26/21 loratadine 10 mg tablet 10 mg PO DAILY 03/19/20 12/26/21 omega-3 fatty acids 1,000 mg 1,000 mg PO BID 03/19/20 12/26/21 capsule oxcarbazepine 300 mg tablet 300 mg PO BID 03/19/20 12/26/21 alcohol swabs 0 pad topical 05/30/20 12/26/21 baclofen 10 mg tablet 10 mg PO TID 05/30/20 12/26/21 lisinopril 10 mg tablet 10 mg PO DAILY 05/30/20 12/26/21 fluticasone propionate 50 intranasal 12/26/21 12/26/21 mcg/actuation nasal spray,suspension Previous Rx's ?Medication ?Instructions ?Recorded dulaglutide 1.5 mg/0.5 mL 1.5 mg (0.5 mL) subcut QWEEK 84 02/26/21 subcutaneous pen injector days #6 mL (Trulicity) docusate sodium 100 mg capsule 100 mg PO DAILY constipation #30 10/04/21 (Colace) caps ibuprofen 600 mg tablet 600 mg PO Q8H PRN pain #14 tabs 12/23/21 ibuprofen 600 mg tablet 600 mg PO TID PRN pain #20 tabs 03/16/22 oxycodone 5 mg tablet 5 mg PO BID PRN pain #7 tabs 03/16/22 levofloxacin 500 mg tablet 500 mg PO DAILY #9 tabs 09/15/22 metronidazole 500 mg tablet 500 mg PO BID #19 tabs 09/15/22 tramadol 50 mg tablet 50 mg PO BID PRN pain #7 tabs 09/15/22 cetirizine 10 mg capsule (Zyrtec) 10 mg PO DAILY PRN allergy 03/12/23 symptoms #14 caps diphenhydramine HCl 25 mg capsule 25 mg PO TID PRN itching #14 caps 03/12/23 (Benadryl) hydrocortisone 1 % lotion 1 appl topical BID PRN itching 03/12/23 (Anti-Itch (hydrocortisone)) #120 mL cyclobenzaprine 10 mg tablet 10 mg PO TID PRN muscle spasm #12 09/10/23 tabs dexamethasone 4 mg tablet 4 mg PO BID #6 tabs 09/10/23 naproxen 500 mg tablet 500 mg PO BID PRN pain #14 tabs 09/10/23 ondansetron 4 mg disintegrating 4 mg PO Q8H PRN nausea and 11/26/23 tablet vomiting #9 tabs Allergies Allergy/AdvReac Type Severity Reaction Status Date / Time No Known Allergies Allergy Verified 11/26/23 15:02 [No Known Allergies*] Review of Systems Review of Systems As per HPI Yes all other systems are reviewed and are negative Constitutional: Reports as per HPI [facility] Past Medical History Medical History Type 2 diabetes mellitus with hyperglycemia, with long-term current use of insulin IBS (irritable bowel syndrome) Hypertriglyceridemia Schizophrenia Inflammatory arthritis Diverticulitis GERD (gastroesophageal reflux disease) Depression Essential hypertension Hyperlipidemia LDL goal <100 Type 2 diabetes mellitus without complications Surgical History Hx of hammer toe correction History of incisional hernia repair Hx of total cystectomy Hx of hand surgery History of surgery on arm Hx of foot surgery Hx of hernia repair Family History Family History Paternal Grandfather Diabetes Social History Social History Household Members: Significant Other and Children Alcohol intake: current Alcohol intake frequency: holidays/special occasions only Patient Tobacco Use Status: Never used Tobacco Smoked in Last 30 Days: No Use of substances other than those prescribed or required for medical reasons: No Advance Directives: No Advance Directives Information Provided: Yes Do you have a plan to hurt others: No Plan Current occupational status: disabled 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 Blood pressure normal. Heart rate normal. Respiratory rate normal. Temperature normal. Oxygen saturation normal. Const General: cooperative, healthy appearing and no acute distress Orientation/consciousness: oriented to person, oriented to place, oriented to time and patient oriented x3 Limitations: no limitations HENMT Head: Yes normocephalic and Yes atraumatic Ears: external ears normal General nose exam: Normal external nose present Face and sinus: Yes face symmetric Mouth: oropharynx normal and moist mucous membranes Throat: Yes uvula midline Eyes Pupils: Equal, round and reactive pupils present Neck Neck: Yes normal visual inspection and Yes supple Resp Effort & Inspection: normal respiratory effort and able to speak in complete sentences Auscultation: clear to auscultation bilaterally Cardio Rate: regular rate Rhythm: regular rhythm Heart sounds: S1 normal heart sound present and S2 normal heart sound present GI Palpation (GI): Soft to palpation, Tenderness to palpation present (GI) in the LLQ and in the LUQ, no guarding and No Rebound tenderness present Auscultation: normoactive bowel sounds General: Yes no CVA tenderness Back/Spine/Pelvis Back: no CVA tenderness Skin General skin exam: elasticity normal and turgor normal Neuro General: oriented to person, oriented to place, oriented to time, patient oriented x3, moves all extremities, no focal motor deficits and CN's II-XI intact bilaterally Cranial nerves: Yes Equal, round and reactive pupils present Cognition (Neuro): normal cognition Extrem General: Yes full ROM, Yes no pedal edema and Yes no calf tenderness Psych Mental Status: mental status grossly normal Affect: normal affect Thought process: Normal thought process present Course Course Course Narrative: This is a Rapid Medical Examination (RME) performed by Gatito Cleary PA-C in triage. Full HPI, ROS, assessment and treatment plan per primary provider in the Main ED. 37 yo male hx of RAMIREZ, T2DM insulin dependent, HTN, diverticulitis s/p bowel perforation w/ repair in 2008 here for eval of 10/10 epigastric abd pain, vomiting, diarrhea, increased flatus x4 days. seen at , diagnosed with virus. today has worsening abd pain. denies fever. + healed vertical scar noted to central abdomen. Nondistended, tender to palpation of the epigastric region with voluntary guarding. No rebound tenderness. Normoactive bowel sounds x4 Plan: labs, viral serology Medical Decision Making Medical Decision Making MDM Narrative: Patient is a 37-year-old Greek-speaking male with history of T2DM, HTN, RAMIREZ, diverticulitis with bowel perforation in 2008 presenting to the emergency department with complaint of abdominal pain and diarrhea. On exam patient is awake, A+Ox3, VS WNL, afebrile, normal neurological exam without focal deficits, physical exam findings as above. Given reported symptoms and physical exam findings, initial differential includes viral illness, gastroenteritis, pancreatitis, diverticulitis. Labs notable for slight leukocytosis, otherwise unremarkable. CT notable for no significant abnormality. My interpretation is in agreement with the radiologist's interpretation. Patient updated on results and all questions answered. Discussed with patient that symptoms are likely due to viral illness which will resolve on its own. Patient able to tolerate dipika andrea in the ED. Will send prescription for Zofran for nausea. Advised patient he can use [id number] Imodium as needed for diarrhea. Should ensure adequate intake of fluids with electrolytes. Follow-up with PCP. Return precautions discussed at bedside. Patient verbalized understanding of and agreement with plan. Results, plan and return precautions discussed with patient with in- person mobile application architect at bedside. Differential Diagnosis Differential Diagnoses: The differential diagnosis associated with the presentation includes As per [facility]. Admission/Observation Consideration of admission/observation: Escalation of care including admission/observation considered Patient would have been admitted to the hospital had their work up had any findings where hospital admission was appropriate and their clinical presentation warranted hospital admission. Lab Data [facility] Lab Attestation statement: I reviewed the patient's lab results. as per [facility] 11/26/23 15:11 11/26/23 15:11 Labs: Lab Results 11/26/23 Range/Units 15:11 WBC 11.1 H (4.8-10.8) X10*3/uL RBC 5.44 (4.60-5.80) X10*6/uL Hgb 16.3 (14.0-18.0) g/dl Hct 45.9 (42.0-52.0) % MCV 84.4 (80.0-98.0) fL MCH 30.0 (27.0-33.0) pg MCHC 35.5 (31.0-36.0) g/dl RDW 12.6 (11.0-16.0) % Plt Count 235 (160-400) X10*3/uL MPV 11.6 (9.4-12.4) fL Immature Gran % (Auto) 0.4 (0.0-0.4) % Neut % (Auto) 66.6 (45-73) % Lymph % (Auto) 22.4 (20-40) % Perry % (Auto) 7.9 (2-11) % Eos % (Auto) 2.5 (0-4) % Baso % (Auto) 0.2 (0-2) % Lymph # (Auto) 2.5 (1.2-4.9) X10*3/uL Perry # (Auto) 0.9 (0.1-1.2) X10*3/uL Eos # (Auto) 0.3 (0.0-0.4) X10*3/uL Baso # (Auto) 0.0 (0.0-0.2) X10*3/uL Abs Immat Gran (auto) 0.04 H (0.00-0.03) X10*3/uL Absolute Neuts (auto) 7.4 (2.0-8.3) x10*3/uL Absolute Nucleated RBC 0.000 (0.0-0.012) X10*3/uL Nucleated RBC % (auto) 0.0 (0.0-0.2) /100WBC Sodium 141 (135-145) mmol/L Potassium 4.1 (3.3-5.1) mmol/L Chloride 108 (96-108) mmol/L Carbon Dioxide 25 (22-29) mmol/L Anion Gap 12 (12-20) BUN 8 L (9-16) mg/dL Creatinine 0.82 (0.5-1.4) mg/dL Estim Creat Clear Calc 115.9 Estimated GFR > 60 Random Glucose 172 H (60-115) mg/dL Calcium 9.4 (8.4-10.2) mg/dL Magnesium 1.9 (1.6-2.6) mg/dL Total Bilirubin 0.7 (0.0-1.0) mg/dL AST 14 (5-37) U/L ALT 15 (0-40) U/L Alkaline Phosphatase 92 (39-117) U/L Total Protein 7.8 (6.5-8.0) g/dL Albumin 4.2 (3.5-5.0) g/dL Lipase 18 (8-78) U/L Influenza Type A (PCR) NEGATIVE (Negative) Influenza Type B (PCR) NEGATIVE (Negative) RSV RNA Qual (PCR) NEGATIVE (Negative) SARS-CoV-2 RNA (RT-PCR) NEGATIVE (Negative) Independent Interpretation I performed an independent interpretation of an: CT Scan Interpretation: CT notable for no significant abnormality. Radiology Impression Discussion of test interpretation with radiology: I have reviewed the radiologist's reading. Radiologist Impression: CT/CT abdomen pelvis w IV con IMPRESSION: No significant abnormality. External Record Review External record reviewed: Inpatient record, Office record and Outpatient record Prescription Management I considered prescription management with: Other Medications Administered Discontinued Medications Generic Name Dose Route Start Last Admin Trade Name Freq PRN Reason Stop Dose Admin Sodium Chloride 1,000 mls @ 999 mls/hr 11/26/23 19:00 11/26/23 20:18 Ns IV 11/26/23 20:00 Infused .Q1H1M KEILA Infusion Iohexol 100 ml 11/26/23 19:36 11/26/23 19:36 Iohexol 350 Mg/Ml 100 Ml Infus..Btl IV 11/26/23 19:37 85 ml ONCE ONE Administration Ondansetron HCl 4 mg 11/26/23 18:48 11/26/23 19:17 Ondansetron Hcl 4 Mg/2 Ml Vial IVPUSH 11/26/23 18:49 4 mg ONCE ONE Administration Discharge Plan Discharge Clinical Impression: Gastroenteritis Patient Disposition: Home, Self-Care Instructions: Gastroenteritis (DC), Acute Nausea and Vomiting (ED), Acute Diarrhea (ED) Additional Instructions: You were evaluated in the emergency department today for abdominal pain, nausea, vomiting, and diarrhea. Your evaluation did not show evidence of conditions requiring emergent medical treatment at this time. You are being prescribed ondansetron which you can take every 8 hours as needed for nausea. You can use [id number] Imodium as directed for diarrhea. Be sure to drink adequate fluids with electrolytes such as Gatorade, Powerade, Pedialyte. Follow-up with your primary care provider. Return to the emergency department if you develop fever, worsening pain, persistent vomiting or any other concerning symptoms. Prescriptions: New ondansetron 4 mg tablet,disintegrating 4 mg PO Q8H PRN (Reason: nausea and vomiting) Qty: 9 0RF No Action Trulicity 1.5 mg/0.5 mL pen injector 1.5 mg subcut QWEEK 84 Days Qty: 6 1RF ibuprofen 600 mg tablet 600 mg PO Q8H PRN (Reason: pain) Qty: 14 0RF ibuprofen 600 mg tablet 600 mg PO TID PRN (Reason: pain) Qty: 20 0RF oxycodone 5 mg tablet 5 mg PO BID PRN (Reason: pain) Qty: 7 0RF Rx Instructions: Partial Fill upon patient request. dexamethasone 4 mg tablet 4 mg PO BID Qty: 6 0RF cyclobenzaprine 10 mg tablet 10 mg PO TID PRN (Reason: muscle spasm) Qty: 12 0RF naproxen 500 mg tablet 500 mg PO BID PRN (Reason: pain) Qty: 14 0RF levofloxacin 500 mg tablet 500 mg PO DAILY Qty: 9 0RF metronidazole 500 mg tablet 500 mg PO BID Qty: 19 0RF tramadol 50 mg tablet 50 mg PO BID PRN (Reason: pain) Qty: 7 0RF hydrocortisone [Anti-Itch (HC)] 1 % lotion 1 appl topical BID PRN (Reason: itching) Qty: 120 0RF diphenhydramine HCl [Benadryl] 25 mg capsule 25 mg PO TID PRN (Reason: itching) Qty: 14 0RF Zyrtec 10 mg capsule 10 mg PO DAILY PRN (Reason: allergy symptoms) Qty: 14 0RF alcohol swabs Pads, Medicated 0 pad topical lisinopril 10 mg tablet 10 mg PO DAILY baclofen 10 mg tablet 10 mg PO TID Tresiba FlexTouch U-100 100 unit/mL (3 mL) insulin pen 18 unit subcut DAILY oxcarbazepine 300 mg tablet 300 mg PO BID omega-3 fatty acids 1,000 mg capsule 1,000 mg PO BID duloxetine 30 mg capsule,delayed release(DR/EC) 30 mg PO QAM cholecalciferol (vitamin D3) 50 mcg (2,000 unit) tablet 50 mcg PO DAILY loratadine 10 mg tablet 10 mg PO DAILY atorvastatin 20 mg tablet 20 mg PO BEDTIME (DME) lancets 28 gauge misc See Rx Instructions topical BID Qty: 100 Rx Instructions: As directed (DME) FreeStyle Lite Strips Strip See Rx Instructions Not Applicable TID Qty: 10 Rx Instructions: As directed docusate sodium [Colace] 100 mg capsule 100 mg PO DAILY Qty: 30 2RF fluticasone propionate 50 mcg/actuation spray,suspension intranasal Stand Alone Forms: Work/School Release Print Language: Greek
[2023-11-26 15:17] LABS: MANUAL DIFF FLAG NO
[2023-11-26 15:21] LABS: Basophils Percent Auto 0.2 % (0-2); Eosinophils Absolute Auto 0.3 X10*3/uL (0.0-0.4); Eosinophils Percent Auto 2.5 % (0-4); Hematocrit 45.9 % (42.0-52.0); Hemoglobin 16.3 g/dl (14.0-18.0); Imm Gran Abs Auto 0.04 X10*3/uL (0.00-0.03); Imm Gran Pct Auto 0.4 % (0.0-0.4); Lymphocytes Absolute Auto 2.5 X10*3/uL (1.2-4.9); Lymphocytes Percent Auto 22.4 % (20-40); Mean Corpuscular HGB Conc 35.5 g/dl (31.0-36.0); Mean Corpuscular Volume 84.4 fL (80.0-98.0); Mean Platelet Volume 11.6 fL (9.4-12.4); Monocytes Absolute Auto 0.9 X10*3/uL (0.1-1.2); Monocytes Percent Auto 7.9 % (2-11); Neutrophils Absolute Auto 7.4 x10*3/uL (2.0-8.3); Neutrophils Percent Auto 66.6 % (45-73); Platelet Count 235 X10*3/uL (160-400); Red Blood Count 5.44 X10*6/uL (4.60-5.80); Red Cell Distribution Width 12.6 % (11.0-16.0); White Blood Count 11.1 X10*3/uL (4.8-10.8)
[2023-11-26 15:35] LABS: Alanine Aminotransferase 15 U/L (0-40); Albumin Level 4.2 g/dL (3.5-5.0); Alkaline Phosphatase 92 U/L (39-117); Anion Gap 12 (12-20); Aspartate Amino Transferase 14 U/L (5-37); Bilirubin Total 0.7 mg/dL (0.0-1.0); Blood Urea Nitrogen 8 mg/dL (9-16); Calcium 9.4 mg/dL (8.4-10.2); Carbon Dioxide 25 mmol/L (22-29); Chloride 108 mmol/L (96-108); Creatinine Clr Calc Pharmacy 115.9; Estimated Glomerular Filt Rate > 60; Glucose Random 172 mg/dL (60-115); Lipase 18 U/L (8-78); Magnesium 1.9 mg/dL (1.6-2.6); Potassium 4.1 mmol/L (3.3-5.1); Sodium 141 mmol/L (135-145); Total Protein 7.8 g/dL (6.5-8.0)
[2023-11-26 16:09] LABS: Influenza A PCR NEGATIVE (Negative); Influenza B PCR NEGATIVE (Negative); Resp Syncy Virus RNA Qual PCR NEGATIVE (Negative); SARS COV2 PCR INHOUSE NEGATIVE (Negative)
[2023-11-26 19:00] VITALS: BP 137/87; PULSE 77; RESP 16; TEMP 37.2; O2SAT 99
[2023-11-26] MEDS: 0.9 % Sodium Chloride 1,000 ML 999 ML IV (19:17)
[2023-11-26] MEDS: ondansetron HCL 4 MG/2 ML VIAL IVPUSH (19:17)
--- NOTE | 2023-11-26 19:21 | PC.NURSE ---
pt a&ox4, respirations even and unlabored. pt reporting onset of epigastric pain since thursday with onset of nausea, vomiting and diarrhea. pt reports poor PO intake and unable to keep food down. 20G placed in right ac, fluid bolus administered and p medicated per jun.
[2023-11-26] MEDS: iohexoL 350 MG/ML 100 ML INFUS..BTL IV (19:36)
[2023-11-26 22:45] VITALS: BP 139/98; PULSE 77; RESP 16; TEMP 36.5; O2SAT 100
[2023-11-26 23:51] VITALS: BP 144/90; PULSE 70; RESP 16; TEMP 36.3; O2SAT 99
== END 2023-11-27 00:03 | disposition home or self-care (01) ==
PROVIDERS: Physician Assistant Medical; Emergency Provider Emergency Medicine; PCP Family Medicine
DX: K52.9 Noninfective gastroenteritis and colitis, unspecified (principal); R10.9 Unspecified abdominal pain; E11.9 Type 2 diabetes mellitus without complications; I10 Essential (primary) hypertension; E78.5 Hyperlipidemia, unspecified; Z03.818 Encounter for observation for suspected exposure to other biological agents ruled out
CPT/HCPCS: 0241U; 74177; 80053; 83690; 83735; 85025; 96361; 96374; 99284; 99285; J2405; Q9967